=== PATIENT | female | born 1955 | race Caucasian/White ===

== ENCOUNTER 2017-10-19 12:44 | Inpatient (IN) | payer OTHER, MEDICARE ==
[2017-10-19] VITALS (8 sets, daily range): BP systolic 109–128; BP diastolic 56–68; PULSE 80–107; RESP 16–19; TEMP 97.1–99.9; O2SAT 97–100
[~2017-10-19] VITALS: Ht 154.9 cm; Wt 50.8 kg
--- NOTE | 2017-10-19 14:09 | PD ---
HPI Chief Complaint: Abdominal Pain Time Seen by Provider: 14:00 Travel History International Travel<30 days: No Contact w/Intl Traveler<30days: No Traveled to known affect area: No History of Present Illness HPI 62-year-old female with history of COPD oxygen dependent at home, anxiety, hepatitis C, presents emergency department for evaluation of abdominal pain. Pain has been generalized. It has associated nausea that radiates to the back. He has been ongoing for the last 5 days. She feels as though her abdomen is more distended. Patient has history of cholecystectomy. She reports difficulty urinating. Denies any changes in bowel habits. She has not yet vomited. Pain is a constant, 6 out of 10, exacerbates to a 10 out of 10 with any palpation. She denies any fever chills. She feels that she has been more short of breath than usual but attributes this to her abdominal distention. She has no other symptoms to report at this time. PFSH Past Medical History Anxiety: Yes Heart Rhythm Problems: Yes COPD: Yes Diminished Hearing: No GERD: Yes Hepatitis: Yes (C) Respiratory: Yes (COPD) Immunizations Current: Yes Tetanus Vaccination: Unknown Influenza Vaccination: No Social History Alcohol Use: Yes (seldom) Tobacco Use: Yes Substance Use: No Allergies-Medications (Allergen,Severity, Reaction): Coded Allergies: No Known Allergies (Unverified , 10/19/17) Reported Meds & Prescriptions Reported Meds & Active Scripts Active Reported Oxycodone (Oxycodone HCl) 30 Mg Tab 30 Mg PO Q8H PRN Ranitidine (Ranitidine HCl) 150 Mg Tab 150 Mg PO DAILY Omeprazole 40 Mg Cap 40 Mg DAILY Prednisone 10 Mg Tab 10 Mg PO DAILY Montelukast (Montelukast Sodium) 10 Mg Tab 10 Mg PO HS Cardizem CD 24 HR (Diltiazem CD 24 HR) 180 Mg Caper 180 Mg PO DAILY Ventolin Hfa 18 GM Inh (Albuterol Sulfate) 90 Mcg/Act Aer 2 Puff INH Q4H PRN Ipratropium Neb (Ipratropium [place]) 0.5 Mg/2.5 Ml Amp 0.5 Mg NEB Q4HR NEB Albuterol Neb (Albuterol Sulfate) 2.5 Mg/0.5 Ml Neb 2.5 Mg NEB Q4HR NEB PRN Note: The Albuterol Sulfate Inhalation Solution is concentrated and must be diluted. Read complete instructions carefully before using. Alprazolam 1 Mg Tab 1 Mg PO Q8H PRN Alprazolam 0.5 Mg Tab 0.5 Mg PO Q8H PRN Review of Systems Except as stated in HPI: all other systems reviewed are Neg Physical Exam Narrative GENERAL: Chronically ill-appearing female patient, in no acute distress SKIN: Focused skin assessment warm/dry. HEAD: Atraumatic. Normocephalic. EYES: Pupils equal and round. No scleral icterus. No injection or drainage. ENT: No nasal bleeding or discharge. Mucous membranes pink and moist. NECK: Trachea midline. No JVD. CARDIOVASCULAR: Elevated regular rate and rhythm. RESPIRATORY: No accessory muscle use. Diminished, expiratory wheeze to auscultation. Breath sounds equal bilaterally. GASTROINTESTINAL: Abdomen distended, but soft. Generalized tenderness to palpation. Mild guarding with epigastric palpation. MUSCULOSKELETAL: No obvious deformities. No clubbing. No cyanosis. No edema. NEUROLOGICAL: Awake and alert. No obvious cranial nerve deficits. Motor grossly within normal limits. Normal speech. PSYCHIATRIC: Appropriate mood and affect; insight and judgment normal. Data Data Last Documented VS Vital Signs Date Time Temp Pulse Resp B/P (MAP) Pulse Ox O2 Delivery O2 Flow Rate FiO2 10/19/17 17:46 93 16 115/56 (75) 100 Nasal Cannula 2.00 10/19/17 13:20 98.0 Orders Orders Complete Blood Count With Diff (10/19/17 14:07) Comprehensive Metabolic Panel (10/19/17 14:07) Lipase (10/19/17 14:07) Lactic Acid (10/19/17 14:07) Prothrombin Time / Inr (Pt) (10/19/17 14:07) Act Partial Throm Time (Ptt) (10/19/17 14:07) Urinalysis - C+S If Indicated (10/19/17 14:07) Ct Abd/Pel W Iv Contrast(Rout) (10/19/17 14:07) Iv Access Insert/Monitor (10/19/17 14:07) Ecg Monitoring (10/19/17 14:07) Oximetry (10/19/17 14:07) Sodium Chloride 0.9% Flush (Ns Flush) (10/19/17 14:15) Electrocardiogram (10/19/17 14:07) Abdomen, Upright Only (10/19/17 14:07) Ct Brain W/O Iv Contrast(Rout) (10/19/17 ) Ct Lumb Spine W Iv Contrast (10/19/17 ) Iohexol 350 Inj (Omnipaque 350 Inj) (10/19/17 16:25) Urine Culture (10/19/17 16:24) Morphine Inj (Morphine Inj) (10/19/17 17:15) Labs Laboratory Tests Test 10/19/17 00:00 10/19/17 14:25 10/19/17 14:27 10/19/17 16:24 Blood Urea Nitrogen 23 MG/DL Creatinine 1.04 MG/DL Random Glucose 123 MG/DL Total Protein 6.5 GM/DL Albumin 2.8 GM/DL Calcium Level 9.0 MG/DL Alkaline Phosphatase 257 U/L Aspartate Amino Transf (AST/SGOT) 51 U/L Alanine Aminotransferase (ALT/SGPT) 67 U/L Total Bilirubin 0.3 MG/DL Sodium Level 137 MEQ/L Potassium Level 3.5 MEQ/L Chloride Level 96 MEQ/L Carbon Dioxide Level 34.8 MEQ/L Anion Gap 6 MEQ/L Estimat Glomerular Filtration Rate 54 ML/MIN Lipase 55 U/L White Blood Count 17.5 TH/MM3 Red Blood Count 3.86 MIL/MM3 Hemoglobin 11.4 GM/DL Hematocrit 35.7 % Mean Corpuscular Volume 92.6 FL Mean Corpuscular Hemoglobin 29.6 PG Mean Corpuscular Hemoglobin Concent 32.0 % Red Cell Distribution Width 14.3 % Platelet Count 199 TH/MM3 Mean Platelet Volume 9.2 FL Neutrophils (%) (Auto) 89.0 % Lymphocytes (%) (Auto) 2.1 % Monocytes (%) (Auto) 7.8 % Eosinophils (%) (Auto) 0.8 % Basophils (%) (Auto) 0.3 % Neutrophils # (Auto) 15.5 TH/MM3 Lymphocytes # (Auto) 0.4 TH/MM3 Monocytes # (Auto) 1.4 TH/MM3 Eosinophils # (Auto) 0.1 TH/MM3 Basophils # (Auto) 0.0 TH/MM3 CBC Comment DIFF FINAL Differential Comment Prothrombin Time 9.2 SEC Prothromb Time International Ratio 0.9 RATIO Activated Partial Thromboplast Time 24.1 SEC Lactic Acid Level 1.1 mmol/L Urine Color YELLOW Urine Turbidity HAZY Urine pH 6.0 Urine Specific [place] 1.017 Urine Protein NEG mg/dL Urine Glucose (UA) NEG mg/dL Urine Ketones NEG mg/dL Urine Occult Blood MOD Urine Nitrite NEG Urine Bilirubin NEG Urine Leukocyte Esterase SMALL Urine RBC 3 /hpf Urine WBC 26 /hpf Urine Squamous Epithelial Cells 5 /hpf Urine Bacteria OCC /hpf Microscopic Urinalysis Comment CULTURE INDICATED MDM Medical Decision Making Medical Screen Exam Complete: Yes Emergency Medical Condition: Yes Medical Record Reviewed: Yes Differential Diagnosis Gastritis versus hepatitis versus ascites versus pancreatitis versus cholangitis Narrative Course 62-year-old female presents emergency department for evaluation. Patient has meant that is tender to palpate, primarily in the epigastrium. She appears chronically ill. Laboratory Tests Test 10/19/17 00:00 10/19/17 14:25 10/19/17 14:27 10/19/17 16:24 Blood Urea Nitrogen 23 MG/DL Creatinine 1.04 MG/DL Random Glucose 123 MG/DL Total Protein 6.5 GM/DL Albumin 2.8 GM/DL Calcium Level 9.0 MG/DL Alkaline Phosphatase 257 U/L Aspartate Amino Transf (AST/SGOT) 51 U/L Alanine Aminotransferase (ALT/SGPT) 67 U/L Total Bilirubin 0.3 MG/DL Sodium Level 137 MEQ/L Potassium Level 3.5 MEQ/L Chloride Level 96 MEQ/L Carbon Dioxide Level 34.8 MEQ/L Anion Gap 6 MEQ/L Estimat Glomerular Filtration Rate 54 ML/MIN Lipase 55 U/L White Blood Count 17.5 TH/MM3 Red Blood Count 3.86 MIL/MM3 Hemoglobin 11.4 GM/DL Hematocrit 35.7 % Mean Corpuscular Volume 92.6 FL Mean Corpuscular Hemoglobin 29.6 PG Mean Corpuscular Hemoglobin Concent 32.0 % Red Cell Distribution Width 14.3 % Platelet Count 199 TH/MM3 Mean Platelet Volume 9.2 FL Neutrophils (%) (Auto) 89.0 % Lymphocytes (%) (Auto) 2.1 % Monocytes (%) (Auto) 7.8 % Eosinophils (%) (Auto) 0.8 % Basophils (%) (Auto) 0.3 % Neutrophils # (Auto) 15.5 TH/MM3 Lymphocytes # (Auto) 0.4 TH/MM3 Monocytes # (Auto) 1.4 TH/MM3 Eosinophils # (Auto) 0.1 TH/MM3 Basophils # (Auto) 0.0 TH/MM3 CBC Comment DIFF FINAL Differential Comment Prothrombin Time 9.2 SEC Prothromb Time International Ratio 0.9 RATIO Activated Partial Thromboplast Time 24.1 SEC Lactic Acid Level 1.1 mmol/L Urine Color YELLOW Urine Turbidity HAZY Urine pH 6.0 Urine Specific [place] 1.017 Urine Protein NEG mg/dL Urine Glucose (UA) NEG mg/dL Urine Ketones NEG mg/dL Urine Occult Blood MOD Urine Nitrite NEG Urine Bilirubin NEG Urine Leukocyte Esterase SMALL Urine RBC 3 /hpf Urine WBC 26 /hpf Urine Squamous Epithelial Cells 5 /hpf Urine Bacteria OCC /hpf Microscopic Urinalysis Comment CULTURE INDICATED Patient is with leukocytosis of 17.5 and a neutrophilia of 15.5. She does take prednisone every day however this is uncertain if this is due to infectious process. CMP is with slightly elevated BUN of 23, creatinine 1.04. Slight transaminitis. Lactic acid is 1.9. Urinalysis is hazy with moderate occult blood, small leukocyte Estrace, 26 WBCs with occasional bacteria. Culture is indicated. Last Impressions Abdomen/Pelvis CT 10/19/171406 Signed Impressions: CONCLUSION: 1. Dilated intra and extra hepatic biliary ducts with the common bile duct alejandro suring 16 mm in diameter. An obstructing process in the distal common bile duct needs to be excluded. 2. Dilated main pancreatic duct measuring 6 mm. No discrete evidence of pancre atic mass. 3. Status post cholecystectomy. 4. No other significant abnormality noted. Abdomen X-Ray 10/19/171406 Signed Impressions: CONCLUSION: 1. No evidence of significant ileus, mass effect or free air. 2. Right upper quadrant calcifications which may represent nephrolithiasis. Lumbar Spine CT 10/19/17 0000 Signed Impressions: CONCLUSION: 1. Advanced degenerative disc disease at L1-2 and L2-3 as described 2. No evidence of acute disc herniation, significant foraminal encroachment or spinal stenosis. 3. No evidence of enhancing epidural or intradural lesions. 4. No acute bony abnormality. Head CT 10/19/17 0000 Signed Impressions: CONCLUSION: 1. Ventriculomegaly which may represent mild hydrocephalus. 2. No evidence of acute infarct, hemorrhage, mass or edema. I discussed the patient my attending physician who is also assessed the patient. Last Impressions Abdomen/Pelvis CT 10/19/171406 Signed Impressions: CONCLUSION: 1. Dilated intra and extra hepatic biliary ducts with the common bile duct alejandro suring 16 mm in diameter. An obstructing process in the distal common bile duct needs to be excluded. 2. Dilated main pancreatic duct measuring 6 mm. No discrete evidence of pancre atic mass. 3. Status post cholecystectomy. 4. No other significant abnormality noted. Abdomen X-Ray 10/19/17 1407 Signed Impressions: CONCLUSION: 1. No evidence of significant ileus, mass effect or free air. 2. Right upper quadrant calcifications which may represent nephrolithiasis. Lumbar Spine CT 10/19/17 0000 Signed Impressions: CONCLUSION: 1. Advanced degenerative disc disease at L1-2 and L2-3 as described 2. No evidence of acute disc herniation, significant foraminal encroachment or spinal stenosis. 3. No evidence of enhancing epidural or intradural lesions. 4. No acute bony abnormality. Head CT 10/19/17 0000 Signed Impressions: CONCLUSION: 1. Ventriculomegaly which may represent mild hydrocephalus. 2. No evidence of acute infarct, hemorrhage, mass or edema. I discussed the patient with Dr. hayes. Patient will be admitted to medicine. She is given IV Zosyn. A call has been placed to GI and I am waiting on return call for consult. Diagnosis Primary Impression: Abdominal pain Qualified Codes: R10.84 - Generalized abdominal pain Additional Impressions: Cholangitis UTI (urinary tract infection) Qualified Codes: N39.0 - Urinary tract infection, site not specified; R31.9 - Hematuria, unspecified Admitting Information Admitting Physician Requests: Admit Condition: Stable Alycia Weldon Oct 19, 2017 14:09
[2017-10-19] MEDS ORDERED: SODIUM CHLORIDE 0.9% FLUSH 10 ML FLUSH IV FLUSH PRN ×2 (14:15→19:30)
[2017-10-19 14:54] LABS: AUTOMATED NEUTROPHIL # 15.5 TH/MM3 (1.8-7.7); BASOPHIL % 0.3 % (0.0-2.0); EOSINOPHIL # 0.1 TH/MM3 (0-0.4); EOSINOPHIL % 0.8 % (0.0-4.0); HEMATOCRIT 35.7 % (35.0-46.0); HEMOGLOBIN 11.4 GM/DL (11.6-15.3); LYMPH % 2.1 % (9.0-44.0); LYMPHOCYTE # 0.4 TH/MM3 (1.0-4.8); MEAN CELL VOLUME 92.6 FL (80.0-100.0); MEAN CORPUSCULAR HEMOGLOBIN 29.6 PG (27.0-34.0); MEAN PLATELET VOLUME 9.2 FL (7.0-11.0); MONO % 7.8 % (0.0-8.0); MONOCYTE # 1.4 TH/MM3 (0-0.9); PLATELET COUNT 199 TH/MM3 (150-450); RED BLOOD COUNT 3.86 MIL/MM3 (4.00-5.30); RED CELL DISTRIBUTION WIDTH 14.3 % (11.6-17.2); WHITE BLOOD COUNT 17.5 TH/MM3 (4.0-11.0)
--- NOTE | 2017-10-19 14:59 | RADRPT ---
EXAM DATE: 10/19/2017 2:54 PM EDT AGE/SEX: 62 years / Female INDICATIONS: Abdomen pain 5 days. CLINICAL DATA: This is the patient's initial encounter. Patient reports that signs and symptoms have been present for 4 - 6 days and indicates a pain score of 9/10. MEDICAL/SURGICAL HISTORY: None. Cholecystectomy. Appendectomy. COMPARISON: No prior exams available for comparison. FINDINGS: A moderate amount retained stool is present in the colon. There is no evidence of significant ileus. There is no evidence of free air or mass effect. Small calcification is seen in the right upper quadr ant. CONCLUSION: 1. No evidence of significant ileus, mass effect or free air. 2. Right upper quadrant calcifications which may represent nephrolithiasis. Electronically signed by: Wil Mcclure MD 10/19/2017 2:58 PM EDT
[2017-10-19 15:05] LABS: INTERNATIONAL NORMALIZED RATIO 0.9 RATIO; PROTHROMBIN TIME - PATIENT 9.2 SEC (9.8-11.6)
[2017-10-19 15:14] LABS: ALBUMIN 2.8 GM/DL (3.4-5.0); ALT (GPT) 67 U/L (10-53); AST (GOT) 51 U/L (15-37); BICARBONATE 34.8 MEQ/L (21.0-32.0); BLOOD UREA NITROGEN 23 MG/DL (7-18); CHLORIDE 96 MEQ/L (98-107); CREATININE 1.04 MG/DL (0.50-1.00); GLOMERULAR FILTRATION RATE 54 ML/MIN (>89); GLUCOSE,RANDOM 123 MG/DL (74-106); SODIUM (NA) 137 MEQ/L (136-145)
[2017-10-19 15:17] LABS: ALKALINE PHOSPHATASE 257 U/L (45-117); TOTAL BILIRUBIN ADULT 0.3 MG/DL (0.2-1.0); TOTAL PROTEIN 6.5 GM/DL (6.4-8.2)
[2017-10-19] MEDS ORDERED: RANI150T PO (15:19)
[2017-10-19] MEDS ORDERED: IPRA0.02 NEB (15:19)
[2017-10-19] MEDS ORDERED: PRED10 PO (15:19)
[2017-10-19] MEDS ORDERED: ALPR1TAB3 PO (15:19)
[2017-10-19] MEDS ORDERED: MONT10TA4 PO (15:19)
[2017-10-19] MEDS ORDERED: OMEP40CA2 (15:19)
[2017-10-19] MEDS ORDERED: CARD180C5 PO (15:19)
[2017-10-19] MEDS ORDERED: ALBU.5I NEB (15:19)
[2017-10-19] MEDS ORDERED: ALPR0.5T3 PO (15:19)
[2017-10-19] MEDS ORDERED: OXYC30TA PO (15:19)
[2017-10-19] MEDS ORDERED: VENTAER INH (15:19)
[2017-10-19] MEDS ORDERED: IOHEXOL 350 MG/ML 10 ML VIAL (for RAD DIAG) IVCONTRAST ONE (16:25)
--- NOTE | 2017-10-19 16:28 | RADRPT ---
EXAM DATE: 10/19/2017 4:18 PM EDT AGE/SEX: 62 years / Female INDICATIONS: Trauma, fall. CLINICAL DATA: This is the patient's initial encounter. Patient reports that signs and symptoms have been present for 1 day and indicates a pain score of 9/10. MEDICAL/SURGICAL HISTORY: Chronic obstructive pulmonary disease. Gastroesophageal reflux disease. Hepatitis C. None. RADIATION DOSE: 60.11 CTDI (mGy) COMPARISON: No prior exams available for comparison. TECHNIQUE: CT of the head without contrast. Using automated exposure control and adjustment of the mA and/or kV according to patient size, radiation dose was kept as low as reasonably achievable to ob tain optimal diagnostic quality images. FINDINGS: Cerebrum: The ventricles are enlarged for age. There is no significant periventricular hypodensity. Sulcal effacement along the cerebral convexities is noted. No evidence of midline shift, mass lesion, hemorrhage or acute infarction. No extraaxial fluid collections are seen. Posterior Fossa: The cerebellum and brainstem are intact. The 4th ventricle is midline. The cerebe llopontine angle is unremarkable. Extracranial: The visualized portion of the orbits is intact. Skull: The calvaria is intact. No evidence of skull fracture. CONCLUSION: 1. Ventriculomegaly which may represent mild hydrocephalus. 2. No evidence of acute infarct, hemorrhage, mass or edema. Electronically signed by: Wil Mcclure MD 10/19/2017 4:26 PM EDT
--- NOTE | 2017-10-19 16:33 | RADRPT ---
EXAM DATE: 10/19/2017 4:20 PM EDT AGE/SEX: 62 years / Female INDICATIONS: Abdominal pain. CLINICAL DATA: This is the patient's initial encounter. Patient reports that signs and symptoms have been present for 1 day and indicates a pain score of 5/10. MEDICAL/SURGICAL HISTORY: Chronic obstructive pulmonary disease. Gastroesophageal reflux disea se. Hepatitis C. Umbilical hernia repair. ORAL CONTRAST: No oral contrast ingested. RADIATION DOSE: 5.81 CTDI (mGy) COMPARISON: No prior exams available for comparison. TECHNIQUE: Multiple contiguous axial images were obtained through the abdomen and pelvis following b olus infusion of 95 ml Omnipaque 350 (iohexol) nonionic water-soluble contrast as a cumulative dose for multiple exams. No oral contrast ingested. Using automated exposure control and adjustment of t he mA and/or kV according to patient size, the radiation dose was kept as low as reasonably achievabl e to obtain optimal diagnostic quality images. FINDINGS: Lower Lungs: The visualized lower lungs are clear. Liver: The liver has a homogeneous density without space-occupying lesion. Postcholecystectomy clips are noted. There is distention of the biliary tree. Common bile duct measures 1.6 cm in diameter. The intrahepatic biliary radicals are mildly dilated. Spleen: Homogeneous density without enlargement. Pancreas: The main pancreatic duct is dilated. It measures 6 mm in diameter and pancreatic head. The duct is diffusely dilated. There is no evidence of obstructing mass or calculus. Kidneys: Normal in size and shape. No evidence of mass or hydronephrosis. Adrenal Glands: Unremarkable. Aorta: Moderate calcified plaque is present throughout the aorta. Bowel/Mesentery: The bowel loops are grossly unremarkable. The cecum and sigmoid colon have a normal configuration. Abdominal Wall: Intact. Retroperitoneum: No evidence of adenopathy in the retrocrural, para-aortic, or deep pelvic regions. Bladder: Contours are smooth. Reproductive Organs: No abnormal masses or calcifications seen. Inguinal: The inguinal region is unremarkable without evidence of adenopathy. Bony Structures: Unremarkable. CONCLUSION: 1. Dilated intra and extra hepatic biliary ducts with the common bile duct measuring 16 mm in diamet er. An obstructing process in the distal common bile duct needs to be excluded. 2. Dilated main pancreatic duct measuring 6 mm. No discrete evidence of pancreatic mass. 3. Status post cholecystectomy. 4. No other significant abnormality noted. Electronically signed by: Wil Mcclure MD 10/19/2017 4:31 PM EDT
[2017-10-19 16:42] LABS: BACTERIA, URINE OCC /hpf; BILIRUBIN, URINE NEG (NEG); BLOOD, URINE MOD (NEG); GLUCOSE,URINE NEG (NEG); KETONE, URINE NEG (NEG); NITRITE,URINE NEG (NEG); SQUAMOUS EPITHELIAL CELL URINE 5 /hpf (0-5); URINE COLOR YELLOW (YELLW/STRAW); URINE LEUKOCYTE ESTERASE SMALL (NEG)
--- NOTE | 2017-10-19 16:48 | RADRPT ---
EXAM DATE: 10/19/2017 4:24 PM EDT AGE/SEX: 62 years / Female INDICATIONS: Lower back pain for 5 days. CLINICAL DATA: This is the patient's initial encounter. Patient reports that signs and symptoms have been present for 4 - 6 days and indicates a pain score of 4/10. MEDICAL/SURGICAL HISTORY: Chronic obstructive pulmonary disease. Cardiovascular disease. Hepatiti s C. None. RADIATION DOSE: . CTDI (mGy) ; Reconstructed from previous dataset, no dose COMPARISON: No prior exams available for comparison. TECHNIQUE: Contiguous axial images were acquired with a multirow detector CT scanner after intraveno us administration of 93 ml Omnipaque 350 (iohexol) nonionic water-soluble contrast as a single exam dose. Multiplanar reconstructions in the sagittal and coronal plane were also performed. Using autom ated exposure control and adjustment of the mA and/or kV according to patient size, radiation dose wa s kept as low as reasonably achievable to obtain optimal diagnostic quality images. FINDINGS: ALIGNMENT: Slight reversal of normal lordosis is identified in the upper lumbar spine. There is slig ht retrolisthesis of L2 on L3. AP alignment is otherwise well preserved.. FACET AND OSSEOUS STRUCTURES: Vertebral bodies are intact without evidence of compression deformity. Posterior elements are intact. There is no significant facet arthropathy. INTERVERTEBRAL DISC SPACES: Advanced degenerative disc disease is noted at L1-2 and L2-3. There is marked disc space narrowing, m arginal spondylosis and gas cumulation within the disc spaces. L1-2: There is no evidence of epidural disc herniation, foraminal encroachment or spinal stenosis. L2-3: A broad-based disc osteophyte complex is identified. There is anterior epidural effacement with out significant spinal stenosis. Mild foraminal encroachment is noted bilaterally. The L3-4, L4-5 and L5-S1 intervertebral disc are unremarkable. NEUROLOGIC STRUCTURES: The spinal cord and nerve roots appear normal. There is no evidence of claudine stephany. There are no enhancing epidural or intradural soft tissue abnormalities. CONCLUSION: 1. Advanced degenerative disc disease at L1-2 and L2-3 as described 2. No evidence of acute disc herniation, significant foraminal encroachment or spinal stenosis. 3. No evidence of enhancing epidural or intradural lesions. 4. No acute bony abnormality. Electronically signed by: Wil Mcclure MD 10/19/2017 4:46 PM EDT
--- NOTE | 2017-10-19 17:12 | PD ---
Physical Exam Date Seen by Provider: Oct 19, 2017 Narrative This patient is being seen primarily by the nurse practitioner. She presents with a 3 day history of abdominal pain which is getting progressively worse. She later told me that her operations dispatcher down in [facility] has mentioned something about a blockage in her biliary tract before. She states that [facility]. Data Data Last Documented VS Vital Signs Date Time Temp Pulse Resp B/P (MAP) Pulse Ox O2 Delivery O2 Flow Rate FiO2 10/19/17 15:11 80 18 110/61 (77) 98 Room Air 10/19/17 13:20 98.0 Orders Orders Complete Blood Count With Diff (10/19/17 14:07) Comprehensive Metabolic Panel (10/19/17 14:07) Lipase (10/19/17 14:07) Lactic Acid (10/19/17 14:07) Prothrombin Time / Inr (Pt) (10/19/17 14:07) Act Partial Throm Time (Ptt) (10/19/17 14:07) Urinalysis - C+S If Indicated (10/19/17 14:07) Ct Abd/Pel W Iv Contrast(Rout) (10/19/17 14:07) Iv Access Insert/Monitor (10/19/17 14:07) Ecg Monitoring (10/19/17 14:07) Oximetry (10/19/17 14:07) Sodium Chloride 0.9% Flush (Ns Flush) (10/19/17 14:15) Electrocardiogram (10/19/17 14:07) Abdomen, Upright Only (10/19/17 14:07) Ct Brain W/O Iv Contrast(Rout) (10/19/17 ) Ct Lumb Spine W Iv Contrast (10/19/17 ) Iohexol 350 Inj (Omnipaque 350 Inj) (10/19/17 16:25) Urine Culture (10/19/17 16:24) Morphine Inj (Morphine Inj) (10/19/17 17:15) Labs Laboratory Tests Test 10/19/17 00:00 10/19/17 14:25 10/19/17 14:27 10/19/17 16:24 Blood Urea Nitrogen 23 MG/DL Creatinine 1.04 MG/DL Random Glucose 123 MG/DL Total Protein 6.5 GM/DL Albumin 2.8 GM/DL Calcium Level 9.0 MG/DL Alkaline Phosphatase 257 U/L Aspartate Amino Transf (AST/SGOT) 51 U/L Alanine Aminotransferase (ALT/SGPT) 67 U/L Total Bilirubin 0.3 MG/DL Sodium Level 137 MEQ/L Potassium Level 3.5 MEQ/L Chloride Level 96 MEQ/L Carbon Dioxide Level 34.8 MEQ/L Anion Gap 6 MEQ/L Estimat Glomerular Filtration Rate 54 ML/MIN Lipase 55 U/L White Blood Count 17.5 TH/MM3 Red Blood Count 3.86 MIL/MM3 Hemoglobin 11.4 GM/DL Hematocrit 35.7 % Mean Corpuscular Volume 92.6 FL Mean Corpuscular Hemoglobin 29.6 PG Mean Corpuscular Hemoglobin Concent 32.0 % Red Cell Distribution Width 14.3 % Platelet Count 199 TH/MM3 Mean Platelet Volume 9.2 FL Neutrophils (%) (Auto) 89.0 % Lymphocytes (%) (Auto) 2.1 % Monocytes (%) (Auto) 7.8 % Eosinophils (%) (Auto) 0.8 % Basophils (%) (Auto) 0.3 % Neutrophils # (Auto) 15.5 TH/MM3 Lymphocytes # (Auto) 0.4 TH/MM3 Monocytes # (Auto) 1.4 TH/MM3 Eosinophils # (Auto) 0.1 TH/MM3 Basophils # (Auto) 0.0 TH/MM3 CBC Comment DIFF FINAL Differential Comment Prothrombin Time 9.2 SEC Prothromb Time International Ratio 0.9 RATIO Activated Partial Thromboplast Time 24.1 SEC Lactic Acid Level 1.1 mmol/L Urine Color YELLOW Urine Turbidity HAZY Urine pH 6.0 Urine Specific [place] 1.017 Urine Protein NEG mg/dL Urine Glucose (UA) NEG mg/dL Urine Ketones NEG mg/dL Urine Occult Blood MOD Urine Nitrite NEG Urine Bilirubin NEG Urine Leukocyte Esterase SMALL Urine RBC 3 /hpf Urine WBC 26 /hpf Urine Squamous Epithelial Cells 5 /hpf Urine Bacteria OCC /hpf Microscopic Urinalysis Comment CULTURE INDICATED MDM Supervised Visit with MARIJA: Yes Narrative Course I, Dr. Salas, have reviewed the advance practice practitioner's documentation and am in agreement, met with the patient face to face, made the diagnosis, and the medical decision making was done by me. *My assessment and Findings: She is a thin, cachectic woman who appears much older than her stated age of 62. Her mucous membranes are dry. Her abdomen is diffusely tender. CBC Diagram 10/19/17 14:25 BMP Diagram 10/19/17 00:00 Total Protein 6.5, Albumin 2.8 L, Calcium Level 9.0, Alkaline Phosphatase 257 H , Aspartate Amino Transf (AST/SGOT) 51 H, Alanine Aminotransferase (ALT/SGPT) 67 H, Total Bilirubin 0.3 Last Impressions Abdomen/Pelvis CT 10/19/171406 Signed Impressions: CONCLUSION: 1. Dilated intra and extra hepatic biliary ducts with the common bile duct alejandro suring 16 mm in diameter. An obstructing process in the distal common bile duct needs to be excluded. 2. Dilated main pancreatic duct measuring 6 mm. No discrete evidence of pancre atic mass. 3. Status post cholecystectomy. 4. No other significant abnormality noted. Abdomen X-Ray 10/19/171406 Signed Impressions: CONCLUSION: 1. No evidence of significant ileus, mass effect or free air. 2. Right upper quadrant calcifications which may represent nephrolithiasis. Lumbar Spine CT 10/19/17 0000 Signed Impressions: CONCLUSION: 1. Advanced degenerative disc disease at L1-2 and L2-3 as described 2. No evidence of acute disc herniation, significant foraminal encroachment or spinal stenosis. 3. No evidence of enhancing epidural or intradural lesions. 4. No acute bony abnormality. Head CT 10/19/17 0000 Signed Impressions: CONCLUSION: 1. Ventriculomegaly which may represent mild hydrocephalus. 2. No evidence of acute infarct, hemorrhage, mass or edema. This patient will need to be admitted to the hospital. Gastroenterology will be consulted. Please see Alycia Weldon DNP's note for a more detailed H&P, final diagnosis and disposition Rosemary Salas MD Oct 19, 2017 17:12
[2017-10-19] MEDS ORDERED: MORPHINE SULFATE 4 MG/ML INJ IV PUSH ONE (17:15)
[2017-10-19] MEDS ORDERED: NALOXONE HCL 0.4 MG/ML AMP IV PUSH PRN (18:15)
[2017-10-19] MEDS ORDERED: ACETAMINOPHEN 325 MG TAB PO PRN ×2 (18:15→19:30)
[2017-10-19] MEDS ORDERED: PIPERACIL-TAZO 3.375 GM PREMIX 50 ML IV ONE (18:15)
[2017-10-19] MEDS ORDERED: RESP: ALBUTEROL 2.5 MG/IPRATROPIUM 0.5 MG NEB (SCH) NEB ONE (18:45)
[2017-10-19] MEDS ORDERED: ONDANSETRON ODT 4 MG TAB PO PRN (19:30)
--- NOTE | 2017-10-19 20:56 | EKG ---
Date Performed: 10/19/2017 Time Performed: 14:18:22 PTAGE: 62 years EKG: Sinus rhythm POSSIBLE LEFT ATRIAL ENLARGEMENT BORDERLINE ECG NO PREVIOUS TRACING DOCTOR: Javi Ivey Interpretating Date/Time 10/19/2017 20:53:56
[2017-10-19] MEDS: SODIUM CHLORIDE 0.9% FLUSH 10 ML FLUSH IV FLUSH SCH (21:00)
--- NOTE | 2017-10-19 22:59 | HHI.HP ---
[facility] Physician Tika Cuellar MD Admission Diagnosis Abd pain; Possible cholangitis Diagnoses: Chief Complaint: Abdominal pain Travel History International Travel<30 Days: No Contact w/Intl Traveler <30 Da: No Traveled to Known Affected Are: No History of Present Illness 62-year-old female with a history of COPD on home oxygen, A. fib, anxiety, hepatitis C presented to the ED for abdominal pain. Patient states she has been having constant , 10/10,generalized abdominal pain that radiates to her back with associated nausea for the last 5 days. She also reports difficulty with urination as well. She denies any chest pain, shortness of breath, fever or chills. Past Family Social History Past Medical History COPD on home oxygen Hepatitis C Anxiety A. fib Past Surgical History Cholecystectomy Reported Medications Reported Meds & Active Scripts Active Reported Oxycodone (Oxycodone HCl) 30 Mg Tab 30 Mg PO Q8H PRN Ranitidine (Ranitidine HCl) 150 Mg Tab 150 Mg PO DAILY Omeprazole 40 Mg Cap 40 Mg DAILY Prednisone 10 Mg Tab 10 Mg PO DAILY Montelukast (Montelukast Sodium) 10 Mg Tab 10 Mg PO HS Cardizem CD 24 HR (Diltiazem CD 24 HR) 180 Mg Caper 180 Mg PO DAILY Ventolin Hfa 18 GM Inh (Albuterol Sulfate) 90 Mcg/Act Aer 2 Puff INH Q4H PRN Ipratropium Neb (Ipratropium [place]) 0.5 Mg/2.5 Ml Amp 0.5 Mg NEB Q4HR NEB Albuterol Neb (Albuterol Sulfate) 2.5 Mg/0.5 Ml Neb 2.5 Mg NEB Q4HR NEB PRN Note: The Albuterol Sulfate Inhalation Solution is concentrated and must be diluted. Read complete instructions carefully before using. Alprazolam 1 Mg Tab 1 Mg PO Q8H PRN Alprazolam 0.5 Mg Tab 0.5 Mg PO Q8H PRN Allergies: Coded Allergies: No Known Allergies (Unverified , 10/19/17) Active Ordered Medications Current Medications Medications (Trade) Dose Ordered Sig/Emily Route Start Time Stop Time Status Last Admin (NS Flush) 2 ml UNSCH PRN IV FLUSH 10/19/17 14:15 10/19/17 17:45 Sodium Chloride 1,000 ml @ 70 mls/hr [id number] IV 10/19/17 19:30 10/19/17 23:20 (NS Flush) 2 ml UNSCH PRN IV FLUSH 10/19/17 19:30 (NS Flush) 2 ml BID IV FLUSH 10/19/17 21:00 10/19/17 21:00 (Tylenol) 650 mg Q4H PRN PO 10/19/17 18:15 (Zofran Odt) 4 mg Q6H PRN PO 10/19/17 19:30 (Tylenol) 650 mg Q6H PRN PO 10/19/17 19:30 (Narcan Inj) 0.4 mg UNSCH PRN IV PUSH 10/19/17 18:15 (Milk Of Magnnadja Liq) 30 ml Q12H PRN PO 10/19/17 19:30 Piperacillin Sod/ Tazobactam Sod 50 ml @ 100 mls/hr Q8H IV 10/20/17 02:30 Family History Patient denies any family history Social History Patient denies any tobacco, alcohol or illicit drug use Physical Exam Vital Signs Vital Signs Date Time Temp Pulse Resp B/P (MAP) Pulse Ox O2 Delivery O2 Flow Rate FiO2 10/19/17 19:38 97.1 101 19 115/58 (77) 100 10/19/17 19:24 99 Nasal Cannula 3.00 10/19/17 19:00 100 Nasal Cannula 2.00 10/19/17 18:38 103 18 128/64 (85) 100 Nasal Cannula 2.00 10/19/17 17:46 93 16 115/56 (75) 100 Nasal Cannula 2.00 10/19/17 17:38 90 18 112/57 (75) 100 Nasal Cannula 2.00 10/19/17 15:11 80 18 110/61 (77) 98 Room Air 10/19/17 13:20 98.0 85 17 109/62 (78) 97 Physical Exam GENERAL: This is a well-nourished, well-developed patient, who appears in pain SKIN: No rashes, ecchymoses or lesions. Cool and dry. HEAD: Atraumatic. Normocephalic. EYES: Pupils equal round and reactive. Extraocular motions intact. CARDIOVASCULAR: Regular rate and rhythm without murmurs, gallops, or rubs. RESPIRATORY: Expiratory wheezing throughout all lung redman GASTROINTESTINAL: Abdomen soft, diffuse tenderness in all 4 quadrants, mildly distended. MUSCULOSKELETAL: Extremities without clubbing, cyanosis, or edema. NEUROLOGICAL: Awake and alert. Normal speech. Laboratory Laboratory Tests Test 10/19/17 00:00 10/19/17 14:25 10/19/17 14:27 10/19/17 16:24 Blood Urea Nitrogen 23 Creatinine 1.04 Random Glucose 123 Total Protein 6.5 Albumin 2.8 Calcium Level 9.0 Alkaline Phosphatase 257 Aspartate Amino Transf (AST/SGOT) 51 Alanine Aminotransferase (ALT/SGPT) 67 Total Bilirubin 0.3 Sodium Level 137 Potassium Level 3.5 Chloride Level 96 Carbon Dioxide Level 34.8 Anion Gap 6 Estimat Glomerular Filtration Rate 54 Lipase 55 White Blood Count 17.5 Red Blood Count 3.86 Hemoglobin 11.4 Hematocrit 35.7 Mean Corpuscular Volume 92.6 Mean Corpuscular Hemoglobin 29.6 Mean Corpuscular Hemoglobin Concent 32.0 Red Cell Distribution Width 14.3 Platelet Count 199 Mean Platelet Volume 9.2 Neutrophils (%) (Auto) 89.0 Lymphocytes (%) (Auto) 2.1 Monocytes (%) (Auto) 7.8 Eosinophils (%) (Auto) 0.8 Basophils (%) (Auto) 0.3 Neutrophils # (Auto) 15.5 Lymphocytes # (Auto) 0.4 Monocytes # (Auto) 1.4 Eosinophils # (Auto) 0.1 Basophils # (Auto) 0.0 CBC Comment DIFF FINAL Differential Comment Prothrombin Time 9.2 Prothromb Time International Ratio 0.9 Activated Partial Thromboplast Time 24.1 Lactic Acid Level 1.1 Urine Color YELLOW Urine Turbidity HAZY Urine pH 6.0 Urine Specific [place] 1.017 Urine Protein NEG Urine Glucose (UA) NEG Urine Ketones NEG Urine Occult Blood MOD Urine Nitrite NEG Urine Bilirubin NEG Urine Leukocyte Esterase SMALL Urine RBC 3 Urine WBC 26 Urine Squamous Epithelial Cells 5 Urine Bacteria OCC Microscopic Urinalysis Comment CULTURE INDICATED Date/Time Source Procedure Growth Status 10/19/17 16:24 Urine Clean Catch Urine Culture Pending Received Result Diagram: 10/19/17 14210/19/17 0000 Imaging Last Impressions Abdomen/Pelvis CT 10/19/171406 Signed Impressions: CONCLUSION: 1. Dilated intra and extra hepatic biliary ducts with the common bile duct alejandro suring 16 mm in diameter. An obstructing process in the distal common bile duct needs to be excluded. 2. Dilated main pancreatic duct measuring 6 mm. No discrete evidence of pancre atic mass. 3. Status post cholecystectomy. 4. No other significant abnormality noted. Abdomen X-Ray 10/19/171406 Signed Impressions: CONCLUSION: 1. No evidence of significant ileus, mass effect or free air. 2. Right upper quadrant calcifications which may represent nephrolithiasis. Lumbar Spine CT 10/19/17 Signed Impressions: CONCLUSION: 1. Advanced degenerative disc disease at L1-2 and L2-3 as described 2. No evidence of acute disc herniation, significant foraminal encroachment or spinal stenosis. 3. No evidence of enhancing epidural or intradural lesions. 4. No acute bony abnormality. Head CT 10/19/17 Signed Impressions: CONCLUSION: 1. Ventriculomegaly which may represent mild hydrocephalus. 2. No evidence of acute infarct, hemorrhage, mass or edema. Caprini VTE Risk Assessment Caprini VTE Risk Assessment: No/Low Risk (score <= 1) Caprini Risk Assessment Model Point Value = 1 Point Value = 2 Point Value = 3 Point Value = 5 Age 41-60 Minor surgery BMI > 25 kg/m2 Swollen legs Varicose veins or History of unexplained or recurrent spontaneous Oral contraceptives or hormone replacement Sepsis (< 1 month) Serious lung disease, including pneumonia (< 1 month) Abnormal pulmonary function Acute myocardial infarction Congestive heart failure (< 1 month) History of inflammatory bowel disease Medical patient at bed rest Age 61-74 Arthroscopic surgery Major open surgery (> 45 min) Laparoscopic surgery (> 45 min) Malignancy Confined to bed (> 72 hours) Immobilizing plaster cast Central venous access Age >= 75 History of VTE Family history of VTE Factor V Leiden Prothrombin [id number] Lupus anticoagulant Anticardiolipin antibodies Elevated serum homocysteine Heparin-induced thrombocytopenia Other congenital or acquired thrombophilia Stroke (< 1 month) Elective arthroplasty Hip, pelvis, or leg fracture Acute spinal cord injury (< 1 month) Prophylaxis Regimen Total Risk Factor Score Risk Level Prophylaxis Regimen 0-1 Low Early ambulation 2 Moderate Order ONE of the following: *Sequential Compression Device (SCD) *Heparin 5000 units SQ BID 3-4 Higher Order ONE of the following medications: *Heparin 5000 units SQ TID *Enoxaparin/Lovenox 40 mg SQ daily (WT < 150 kg, CrCl > 30 mL/min) *Enoxaparin/Lovenox 30 mg SQ daily (WT < 150 kg, CrCl > 10-29 mL/min) *Enoxaparin/Lovenox 30 mg SQ BID (WT < 150 kg, CrCl > 30 mL/min) AND/OR *Sequential Compression Device (SCD) 5 or more Highest Order ONE of the following medications: *Heparin 5000 units SQ TID (Preferred with Epidurals) *Enoxaparin/Lovenox 40 mg SQ daily (WT < 150 kg, CrCl > 30 mL/min) *Enoxaparin/Lovenox 30 mg SQ daily (WT < 150 kg, CrCl > 10-29 mL/min) *Enoxaparin/Lovenox 30 mg SQ BID (WT < 150 kg, CrCl > 30 mL/min) AND *Sequential Compression Device (SCD) Assessment and Plan Assessment and Plan 62-year-old female with a history of COPD on home oxygen, A. fib, anxiety, hepatitis C presented to the ED for abdominal pain. Abdominal pain, possible cholangitis Abdomen/pelvis CT reviewed and shows a dilated intra-and extrahepatic biliary ducts with the common bile duct measuring 16 mm in diameter, dilated main pancreatic duct measuring 6 mm. -Consult GI for recommendations -Pain management with IV morphine -IV antibiotics Zosyn -Antiemetics as needed COPD, chronic, not in exacerbation -Home meds reordered -Nebulizers as scheduled and as needed A. fib, chronic -Resume home medications Cardizem, monitor telemetry DVT prophylaxis: SCDs Discussed Condition With Patient and RN Physician Certification 2 Midnight Certification Type: Admission for Inpatient Services Order for Inpatient Services The services are ordered in accordance with Medicare regulations or non- Medicare payer requirements, as applicable. In the case of services not specified as inpatient-only, they are appropriately provided as inpatient services in accordance with the 2-midnight benchmark. Estimated LOS (days): 2 days is the estimated time the patient will need to remain in the hospital, assuming treatment plan goals are met and no additional complications. Post-Hospital Plan: Home Em Johnson Oct 19, 2017 22:59
[2017-10-19] MEDS: SODIUM CHLOR 0.9% 1000 ML INJ 1,000 ML IV SCH (23:20)
[2017-10-20] VITALS (7 sets, daily range): BP systolic 123–146; BP diastolic 58–67; PULSE 91–98; RESP 16–19; TEMP 97.3–98.5; O2SAT 97–100
[2017-10-20] MEDS ORDERED: RESP: ALBUTEROL CONC 2.5 MG/0.5 ML NEB NEB PRN
[2017-10-20] MEDS: MORPHINE SULFATE 4 MG/ML INJ IV PRN ×3 (00:55→16:53)
[2017-10-20] MEDS ORDERED: RESP: ALBUTEROL 2.5 MG/IPRATROPIUM 0.5 MG NEB (SCH) NEB ONE (01:45)
[2017-10-20] MEDS: PIPERACIL-TAZO 3.375 GM PREMIX 50 ML IV SCH ×3 (03:36→17:54)
[2017-10-20 07:14] LABS: AUTOMATED NEUTROPHIL # 12.5 TH/MM3 (1.8-7.7); BASOPHIL % 0.3 % (0.0-2.0); EOSINOPHIL # 0.1 TH/MM3 (0-0.4); EOSINOPHIL % 0.6 % (0.0-4.0); HEMOGLOBIN 12.4 GM/DL (11.6-15.3); LYMPH % 2.7 % (9.0-44.0); LYMPHOCYTE # 0.4 TH/MM3 (1.0-4.8); MEAN CELL VOLUME 93.3 FL (80.0-100.0); MEAN CORPUSCULAR HEMOGLOBIN 30.5 PG (27.0-34.0); MEAN CORPUSCULAR HGB CONC 32.7 % (32.0-36.0); MEAN PLATELET VOLUME 9.3 FL (7.0-11.0); MONO % 8.2 % (0.0-8.0); MONOCYTE # 1.2 TH/MM3 (0-0.9); NEUT % 88.2 % (16.0-70.0); PLATELET COUNT 164 TH/MM3 (150-450); RED BLOOD COUNT 4.07 MIL/MM3 (4.00-5.30); RED CELL DISTRIBUTION WIDTH 14.1 % (11.6-17.2); WHITE BLOOD COUNT 14.2 TH/MM3 (4.0-11.0)
[2017-10-20 07:46] LABS: ALBUMIN 2.5 GM/DL (3.4-5.0); ALT (GPT) 55 U/L (10-53); AST (GOT) 45 U/L (15-37); BICARBONATE 31.6 MEQ/L (21.0-32.0); BLOOD UREA NITROGEN 19 MG/DL (7-18); CALCIUM 8.8 MG/DL (8.5-10.1); CHLORIDE 98 MEQ/L (98-107); CREATININE 0.67 MG/DL (0.50-1.00); GLOMERULAR FILTRATION RATE 89 ML/MIN (>89); GLUCOSE,RANDOM 64 MG/DL (74-106); SODIUM (NA) 143 MEQ/L (136-145); TOTAL BILIRUBIN ADULT 0.6 MG/DL (0.2-1.0); TOTAL PROTEIN 6.1 GM/DL (6.4-8.2)
[2017-10-20 07:47] LABS: ALKALINE PHOSPHATASE 291 U/L (45-117)
[2017-10-20] MEDS: RESP: ALBUTEROL 2.5 MG/IPRATROPIUM 0.5 MG NEB (SCH) NEB ×4 (08:00→20:57)
[2017-10-20] MEDS: SODIUM CHLOR 0.9% 1000 ML INJ 1,000 ML IV SCH (08:29)
[2017-10-20] MEDS: SODIUM CHLORIDE 0.9% FLUSH 10 ML FLUSH IV FLUSH SCH ×2 (08:29→21:16)
[2017-10-20] MEDS: FAMOTIDINE 20 MG TAB PO SCH (08:30)
[2017-10-20] MEDS: DILTIAZEM-CD 180 MG CAP ER PO SCH (08:50)
[2017-10-20] MEDS: PANTOPRAZOLE SOD 40 MG DELAYED RELEASE TAB PO SCH (08:50)
[2017-10-20] MEDS: predniSONE 10 MG TAB PO SCH (08:50)
[2017-10-20] MEDS: ALPRAZolam 0.5 MG TAB PO PRN (09:20)
--- NOTE | 2017-10-20 09:45 | PD.CONS ---
HPI History of Present Illness This is a 62 year old female who was admitted to the hospital on 10/19/2017. Symptoms according to the record included uncontrolled abdominal pain radiating into her back and nausea 5 days. Patient at that time graded pain 10 out of 10 and currently is still having uncontrolled pain 10 out of 10. Patient states generalized upper abdominal pain has worsened over the past 24 hours and is sharp in nature patient is pale, hemoglobin 12.4, and has minimal communication at this time secondary to her pain. Some of the history is being obtained from the record. Currently patient has mild cough and is guarding her abdomen. Patient does not know if there is any family history of colon cancer secondary to her being adopted. According to the record she is denied any fever and chills. Currently patient has no diarrhea and no constipation. Abdomen pelvis CT scan performed on 10/19/2017 shows common bile duct dilation, measuring 16 mm in diameter. An obstructing process in the distal common bile duct needs to be excluded. Dilated main pancreatic duct measuring 6 mm but no evidence of pancreatic mass. Status post cholecystectomy. (Fara Posadas) PFSH Past Medical History COPD on home oxygen Hepatitis C Anxiety A. fib Past Surgical History Cholecystectomy (Fara Posadas) Coded Allergies: No Known Allergies (Unverified , 10/19/17) Medications Administered Medications Medications (Trade) Dose Ordered Sig/Emily Route PRN Reason Start Time Stop Time Status Last Admin Dose Admin Sodium Chloride 1,000 ml @ 70 mls/hr [id number] IV 10/19/17 19:30 10/19/17 23:20 Sodium Chloride (NS Flush) 2 ml BID IV FLUSH 10/19/17 21:00 10/19/17 21:00 Acetaminophen (Tylenol) 650 mg Q6H PRN PO PAIN SCALE 1 TO 2 10/19/17 19:30 10/20/17 00:51 Piperacillin Sod/ Tazobactam Sod 50 ml @ 100 mls/hr Q8H IV 10/20/17 02:30 10/20/17 03:36 Alprazolam (Xanax) 0.5 mg Q8H PRN PO ANXIETY 10/20/17 00:00 10/20/17 09:20 Diltiazem HCl (Cardizem Cd) 180 mg DAILY PO 6/15/18 09:00 10/20/17 08:50 Prednisone (Deltasone) 10 mg DAILY PO 10/20/17 09:00 10/20/17 08:50 Pantoprazole Sodium (Protonix) 40 mg DAILY PO 10/20/17 09:00 10/20/17 08:50 Morphine Sulfate (Morphine Inj) 2 mg Q3H PRN IV pain>5 10/20/17 00:15 10/20/17 03:44 Family History Patient denies any family history Adopted Social History Patient denies any tobacco, alcohol or illicit drug use (Fara Posadas) Review of Systems Gastrointestinal: COMPLAINS OF: Abdominal pain, Nausea (Fara Posadas) GI Exam Vitals I&O Vital Signs Date Time Temp Pulse Resp B/P (MAP) Pulse Ox O2 Delivery O2 Flow Rate FiO2 10/20/17 08:00 98.5 98 16 124/63 (83) 98 10/20/17 03:20 98.0 94 18 123/58 (79) 97 10/19/17 22:58 99.9 107 19 128/68 (88) 98 10/19/17 19:38 97.1 101 19 115/58 (77) 100 10/19/17 19:24 99 Nasal Cannula 3.00 10/19/17 19:00 100 Nasal Cannula 2.00 10/19/17 18:38 103 18 128/64 (85) 100 Nasal Cannula 2.00 10/19/17 17:46 93 16 115/56 (75) 100 Nasal Cannula 2.00 10/19/17 17:38 90 18 112/57 (75) 100 Nasal Cannula 2.00 10/19/17 15:11 80 18 110/61 (77) 98 Room Air 10/19/17 13:20 98.0 85 17 109/62 (78) 97 I/O 10/19/17 10/19/17 10/19/17 10/20/17 10/20/17 10/20/17 07:00 15:00 23:00 07:00 15:00 23:00 Intake Total 0 ml Output Total 550 ml Balance -550 ml Intake Oral 0 ml Output Urine Total 550 ml # Bowel Movements 0 Imaging Last Impressions Abdomen/Pelvis CT 10/19/17 8347 Signed Impressions: CONCLUSION: 1. Dilated intra and extra hepatic biliary ducts with the common bile duct alejandro suring 16 mm in diameter. An obstructing process in the distal common bile duct needs to be excluded. 2. Dilated main pancreatic duct measuring 6 mm. No discrete evidence of pancre atic mass. 3. Status post cholecystectomy. 4. No other significant abnormality noted. Abdomen X-Ray 10/19/17 1407 Signed Impressions: CONCLUSION: 1. No evidence of significant ileus, mass effect or free air. 2. Right upper quadrant calcifications which may represent nephrolithiasis. Lumbar Spine CT 10/19/17 0000 Signed Impressions: CONCLUSION: 1. Advanced degenerative disc disease at L1-2 and L2-3 as described 2. No evidence of acute disc herniation, significant foraminal encroachment or spinal stenosis. 3. No evidence of enhancing epidural or intradural lesions. 4. No acute bony abnormality. Head CT 10/19/17 0000 Signed Impressions: CONCLUSION: 1. Ventriculomegaly which may represent mild hydrocephalus. 2. No evidence of acute infarct, hemorrhage, mass or edema. Laboratory Test 10/19/17 14:25 10/19/17 14:27 10/19/17 16:24 10/20/17 06:32 White Blood Count 17.5 TH/MM3 14.2 TH/MM3 Red Blood Count 3.86 MIL/MM3 4.07 MIL/MM3 Hemoglobin 11.4 GM/DL 12.4 GM/DL Hematocrit 35.7 % 38.0 % Mean Corpuscular Volume 92.6 FL 93.3 FL Mean Corpuscular Hemoglobin 29.6 PG 30.5 PG Mean Corpuscular Hemoglobin Concent 32.0 % 32.7 % Red Cell Distribution Width 14.3 % 14.1 % Platelet Count 199 TH/MM3 164 TH/MM3 Mean Platelet Volume 9.2 FL 9.3 FL Neutrophils (%) (Auto) 89.0 % 88.2 % Lymphocytes (%) (Auto) 2.1 % 2.7 % Monocytes (%) (Auto) 7.8 % 8.2 % Eosinophils (%) (Auto) 0.8 % 0.6 % Basophils (%) (Auto) 0.3 % 0.3 % Neutrophils # (Auto) 15.5 TH/MM3 12.5 TH/MM3 Lymphocytes # (Auto) 0.4 TH/MM3 0.4 TH/MM3 Monocytes # (Auto) 1.4 TH/MM3 1.2 TH/MM3 Eosinophils # (Auto) 0.1 TH/MM3 0.1 TH/MM3 Basophils # (Auto) 0.0 TH/MM3 0.0 TH/MM3 CBC Comment DIFF FINAL DIFF FINAL Differential Comment Prothrombin Time 9.2 SEC Prothromb Time International Ratio 0.9 RATIO Activated Partial Thromboplast Time 24.1 SEC Lactic Acid Level 1.1 mmol/L Urine Color YELLOW Urine Turbidity HAZY Urine pH 6.0 Urine Specific [place] 1.017 Urine Protein NEG mg/dL Urine Glucose (UA) NEG mg/dL Urine Ketones NEG mg/dL Urine Occult Blood MOD Urine Nitrite NEG Urine Bilirubin NEG Urine Leukocyte Esterase SMALL Urine RBC 3 /hpf Urine WBC 26 /hpf Urine Squamous Epithelial Cells 5 /hpf Urine Bacteria OCC /hpf Microscopic Urinalysis Comment CULTURE INDICATED Blood Urea Nitrogen 19 MG/DL Creatinine 0.67 MG/DL Random Glucose 64 MG/DL Total Protein 6.1 GM/DL Albumin 2.5 GM/DL Calcium Level 8.8 MG/DL Alkaline Phosphatase 291 U/L Aspartate Amino Transf (AST/SGOT) 45 U/L Alanine Aminotransferase (ALT/SGPT) 55 U/L Total Bilirubin 0.6 MG/DL Sodium Level 143 MEQ/L Potassium Level 3.7 MEQ/L Chloride Level 98 MEQ/L Carbon Dioxide Level 31.6 MEQ/L Anion Gap 13 MEQ/L Estimat Glomerular Filtration Rate 89 ML/MIN Date/Time Source Procedure Growth Status 10/19/17 16:24 Urine Clean Catch Urine Culture Pending Received Physical Examination HEENT: Pale, normocephalic; atraumatic; no jaundice. NECK: Neck is supple, no JVD, no lymphadenopathy. CHEST: Low volumes generalized diminished breath sounds CARDIAC: Regular rate and rhythm ABDOMEN: Round, taut, mild distention, upper mid generalized abdominal pain with guarding, no hepatosplenomegaly; bowel sounds are present in all four quadrants. EXTREMITIES: No clubbing, cyanosis, or edema. SKIN: Pale, no rash B[employer]ING [employer] OPERATOR: Minimal conversation, poor historian for now (Fara Posadas) Assessment and Plan Assessment: (1) Abdominal pain ICD Codes: R10.9 - Unspecified abdominal pain Status: Acute (2) Cholangitis ICD Codes: K83.0 - Cholangitis Status: Acute Plan 62-year-old female coming to the hospital on 10/19/2017 with uncontrolled generalized and mid abdominal pain on the pain scale 10 out of 10 on with some associated nausea for 5 days. She notes the pain is sharp and uncontrolled and is guarding her abdomen. She is pale hemoglobin 12.4. She has minimal conversation currently secondary to her uncontrolled pain and most of her information is being gathered from the record. Patient is adopted so she does not know her family history. Could not elaborate on last EGD or colonoscopy. CT scan done on 10/19/2017 shows dilated intra-and extra hepatic biliary ducts with common bile duct measuring 6 mm. Obstructing process in the distal common bile duct. Dilated main pancreatic duct measuring 6 mm no evidence of pancreatic mass. Patient is status post cholecystectomy. Plan N.p.o. Consent for ERCP placed on surgery schedule today. Explained to patient she would be having procedure today to help her feel better. IV hydration Anti-medics Protonix Further recommendations to follow Patient was seen per myself and Dr. Randall,, this note was written on his behalf (Fara Posadas) Physician Comments Seen and examined, plan as above, likely ampullary lesion. ERCP today, further recommendations to follow. Thank you for the consult. (Debbie Randall MD) Problem Qualifiers (1) Abdominal pain: Qualified Codes: R10.84 - Generalized abdominal pain Fara Posadas Oct 20, 2017 09:45 Debbie Randall MD Oct 20, 2017 09:56
[2017-10-20] MEDS ORDERED: IOHEXOL 350 MG/ML 50 ML BTL (for RAD DIAG) OTHER ONE (11:25)
[2017-10-20] MEDS ORDERED: LIDOCAINE HCL 1% PF 5 ML SYRINGE OTHER ONE (12:00)
[2017-10-20] MEDS ORDERED: PROPOFOL 200 MG/20 ML AMP IV ONE (12:00)
[2017-10-20] MEDS ORDERED: DO NOT ADM ANY ANTICOAGULANT DRUGS PRN (12:37)
--- NOTE | 2017-10-20 12:39 | GIPROC ---
[facility] [address] [facility]. [facility], [address] ERCP PROCEDURE REPORT EXAM DATE: 10/20/2017 PATIENT NAME: Shanda Decker MR #: [id number] BIRTHDATE: 1955 ATTENDING: Debbie Randall MD ORDER #: [id number] BRIM RAISER: Sabrina Cortez and Anabela Couch STATUS: inpatient INDICATIONS: The patient is a 62 yr old female here for an ERCP due to suspected ascending cholangitis PROCEDURE PERFORMED: ERCP with sphincterotomy/papillotomy MEDICATIONS: None and Per Anesthesia. CONSENT: The patient understands the risks and benefits of the procedure and understands that these risks include, but are not limited to: sedation, allergic reaction, infection, perforation and/or bleeding. Alternative means of evaluation and treatment include, among others: physical exam, x-rays, and/or surgical intervention. The patient elects to proceed with this endoscopic procedure. medical equipment was checked for proper function. Hand hygiene and appropriate measures for infection prevention was taken. After the risks, benefits and alternatives of the procedure were thoroughly explained, Informed was verified, confirmed and timeout was successfully executed by the treatment team. With the patient in left semi-prone position, medications were administered intravenously.The Pentax [id number] was passed from the mouth into the esophagus and further advanced from the esophagus into the stomach. From stomach scope was directed to the second portion of the duodenum. Major papilla was aligned with the duodenoscope. The scope position was confirmed fluoroscopically. Rest of the findings/therapeutics are given below. The scope was then completely withdrawn from the patient and the procedure completed. The pulse, BP, and O2 saturation were monitored and documented by the physician and the nursing staff throughout the entire procedure. The patient was cared for as planned according to standard protocol. The patient was then discharged to recovery in stable condition and with appropriate post procedure care. The ampulla was located the second portion of the duodenum. Bulging with impacted stone ( lady sign) There was a dilation of the CBD. The biliary tree appeared normal with no evidence of stricture or dilation. ADVERSE EVENT: There were no complications. IMPRESSIONS: Impacted stone at the ampulla level, Needle knife sphincterotomy follow by extension by regular sphinctertome. The biliary tree appeared dilated with multiple small debris that were removed by balloon Dilated and tortous pancreatic duct RECOMMENDATIONS: 1. Antibiotics 2. Liver enzymes daily 3. Pain control 4. IV Fluid and Clear liquid diet. REPEAT EXAM: As needed Debbie Randall MD eSigned: Debbie Randall MD 10/20/2017 12:38 PM cc: PATIENT NAME: BrianneShanda MR#: [id number]
[2017-10-20] MEDS ORDERED: PROPOFOL 200 MG/20 ML AMP ONE (12:42)
--- NOTE | 2017-10-20 13:55 | RADRPT ---
EXAM DATE: 10/20/2017 1:34 PM EDT AGE/SEX: 62 years / Female INDICATIONS: Cholangitis. CLINICAL DATA: This is the patient's initial encounter. Patient reports that signs and symptoms have been present for 1 day and indicates a pain score of Nonresponsive. MEDICAL/SURGICAL HISTORY: Chronic obstructive pulmonary disease. Hepatitis C. Gastroesophagea l reflux disease. Smoker. None. COMPARISON: No prior exams available for comparison. FINDINGS: An ERCP was performed by the ordering physician. The images demonstrate prominent common duct with a pparent filling defect evident on the 2 films submitted. Intrahepatic ducts are not visualized. CONCLUSION: Findings as above. Electronically signed by: Greg Mathew MD 10/20/2017 1:54 PM EDT
--- NOTE | 2017-10-20 16:40 | RADRPT ---
EXAM DATE: 10/20/2017 4:36 PM EDT AGE/SEX: 62 years / Female INDICATIONS: Abdominal pain. CLINICAL DATA: This is the patient's initial encounter. Patient reports that signs and symptoms have been present for 3 days and indicates a pain score of 5/10. MEDICAL/SURGICAL HISTORY: Hepatitis C. Chronic obstructive pulmonary disease. Cholecystectomy. Appendectomy. COMPARISON: No prior exams available for comparison. TECHNIQUE: Multiplanar, multisequence images of the abdomen were obtained without contrast including dedicated cholangiographic images. FINDINGS: There is mild prominence of the common duct without filling defects to suggest stone. Finding on ERCP may have been an air bubble There is mild prominence to the pancreatic duct. There is minimal side branch ectasia can be seen wit h early pancreatitis. Trace ascites is evident The liver is free of focal defects Right and left kidneys are unremarkable. CONCLUSION: 1. There is no evidence for for retained common duct stones 2. Trace ascites Electronically signed by: Greg Mathew MD 10/20/2017 4:39 PM EDT
--- NOTE | 2017-10-20 18:24 | HHI.PR ---
Subjective Remarks Follow-up cholangitis/abdominal pain October 20, 2017-patient seen and examined; patient still complaining of abdominal pain along with nausea however denies any emesis Objective Vitals Vital Signs Date Time Temp Pulse Resp B/P (MAP) Pulse Ox O2 Delivery O2 Flow Rate FiO2 10/20/17 16:58 18 10/20/17 16:50 98 10/20/17 16:46 97.3 91 16 129/66 (87) 100 10/20/17 13:00 84 16 141/67 (91) 100 Nasal Cannula 2 10/20/17 12:45 84 16 133/64 (87) 100 Nasal Cannula 2 10/20/17 12:37 98.1 86 16 133/63 (86) 100 Nasal Cannula 2 10/20/17 08:00 98.5 98 16 124/63 (83) 98 10/20/17 03:20 98.0 94 18 123/58 (79) 97 10/19/17 22:58 99.9 107 19 128/68 (88) 98 10/19/17 19:38 97.1 101 19 115/58 (77) 100 10/19/17 19:24 99 Nasal Cannula 3.00 10/19/17 19:00 100 Nasal Cannula 2.00 10/19/17 18:38 103 18 128/64 (85) 100 Nasal Cannula 2.00 I/O 10/19/17 10/19/17 10/19/17 10/20/17 10/20/17 10/20/17 07:00 15:00 23:00 07:00 15:00 23:00 Intake Total 0 ml 610 ml 120 ml Output Total 550 ml Balance -550 ml 610 ml 120 ml Intake Oral 0 ml 120 ml IV Total 10 ml Other 600 ml Output Urine Total 550 ml # Voids 5 # Bowel Movements 0 Result Diagram: 10/20/17 0632 10/20/17 0632 Imaging Last Impressions Cholangiopancreatography MRI 10/20/17 0600 Signed Impressions: CONCLUSION: 1. There is no evidence for for retained common duct stones 2. Trace ascites GI Procedure 10/20/17 0000 Signed Impressions: CONCLUSION: Findings as above. Abdomen/Pelvis CT 10/19/17 1407 Signed Impressions: CONCLUSION: 1. Dilated intra and extra hepatic biliary ducts with the common bile duct alejandro suring 16 mm in diameter. An obstructing process in the distal common bile duct needs to be excluded. 2. Dilated main pancreatic duct measuring 6 mm. No discrete evidence of pancre atic mass. 3. Status post cholecystectomy. 4. No other significant abnormality noted. Abdomen X-Ray 10/19/17 1407 Signed Impressions: CONCLUSION: 1. No evidence of significant ileus, mass effect or free air. 2. Right upper quadrant calcifications which may represent nephrolithiasis. Lumbar Spine CT 10/19/17 0000 Signed Impressions: CONCLUSION: 1. Advanced degenerative disc disease at L1-2 and L2-3 as described 2. No evidence of acute disc herniation, significant foraminal encroachment or spinal stenosis. 3. No evidence of enhancing epidural or intradural lesions. 4. No acute bony abnormality. Head CT 10/19/17 0000 Signed Impressions: CONCLUSION: 1. Ventriculomegaly which may represent mild hydrocephalus. 2. No evidence of acute infarct, hemorrhage, mass or edema. Objective Remarks GENERAL: NAD SKIN: Warm and dry. HEAD: Normocephalic. EYES: No scleral icterus. No injection or drainage. NECK: Supple, trachea midline. No JVD or lymphadenopathy. CARDIOVASCULAR: Regular rate and rhythm without murmurs, gallops, or rubs. RESPIRATORY: Breath sounds equal bilaterally. No accessory muscle use. GASTROINTESTINAL: Abdomen soft, +tender, nondistended. MUSCULOSKELETAL: No cyanosis, or edema. BACK: Nontender without obvious deformity. No CVA tenderness. Procedures ERCP with sphincterotomy/papillotomy October 20, 2017 A/P Problem List: (1) Abdominal pain ICD Code: R10.9 - Unspecified abdominal pain Status: Acute (2) Cholangitis ICD Code: K83.0 - Cholangitis Status: Acute Assessment and Plan 62-year-old female with Abdominal pain, possible cholangitis Abdomen/pelvis CT reviewed and shows a dilated intra-and extrahepatic biliary ducts with the common bile duct measuring 16 mm in diameter, dilated main pancreatic duct measuring 6 mm. -Appreciate input from GI -s/p ERCP with sphincterotomy/papillotomy October 21, 2027 -Pain management with IV morphine -IV antibiotics Zosyn -Antiemetics as needed COPD, chronic, not in exacerbation -Continue Home meds -Nebulizers as scheduled and as needed A. fib, chronic -Continue home medications Cardizem, monitor telemetry DVT prophylaxis: SCDs Problem Qualifiers (1) Abdominal pain: Qualified Codes: R10.84 - Generalized abdominal pain Paul Hugo MD Oct 20, 2017 18:24
[2017-10-20] MEDS: MONTELUKAST SODIUM 10 MG TAB PO SCH (21:16)
[2017-10-21] VITALS (8 sets, daily range): BP systolic 115–158; BP diastolic 61–80; PULSE 80–102; RESP 18–19; TEMP 97.7–98.2; O2SAT 98–100
[2017-10-21] MEDS: SODIUM CHLOR 0.9% 1000 ML INJ 1,000 ML IV SCH ×2 (01:19→14:24)
[2017-10-21] MEDS: PIPERACIL-TAZO 3.375 GM PREMIX 50 ML IV SCH ×3 (03:05→18:36)
[2017-10-21] MEDS: MORPHINE SULFATE 4 MG/ML INJ IV PRN ×3 (03:05→13:39)
[2017-10-21 08:15] LABS: AUTOMATED NEUTROPHIL # 14.7 TH/MM3 (1.8-7.7); BASOPHIL % 0.2 % (0.0-2.0); EOSINOPHIL % 0.3 % (0.0-4.0); HEMATOCRIT 36.8 % (35.0-46.0); HEMOGLOBIN 12.1 GM/DL (11.6-15.3); LYMPH % 2.8 % (9.0-44.0); LYMPHOCYTE # 0.5 TH/MM3 (1.0-4.8); MEAN CORPUSCULAR HEMOGLOBIN 30.3 PG (27.0-34.0); MEAN CORPUSCULAR HGB CONC 32.9 % (32.0-36.0); MEAN PLATELET VOLUME 9.3 FL (7.0-11.0); MONO % 7.2 % (0.0-8.0); MONOCYTE # 1.2 TH/MM3 (0-0.9); NEUT % 89.5 % (16.0-70.0); PLATELET COUNT 203 TH/MM3 (150-450); RED CELL DISTRIBUTION WIDTH 13.7 % (11.6-17.2); WHITE BLOOD COUNT 16.4 TH/MM3 (4.0-11.0)
[2017-10-21 08:51] LABS: ALBUMIN 2.3 GM/DL (3.4-5.0); AST (GOT) 28 U/L (15-37); BICARBONATE 29.8 MEQ/L (21.0-32.0); BLOOD UREA NITROGEN 18 MG/DL (7-18); CALCIUM 8.8 MG/DL (8.5-10.1); CHLORIDE 98 MEQ/L (98-107); GLOMERULAR FILTRATION RATE 162 ML/MIN (>89); GLUCOSE,RANDOM 99 MG/DL (74-106); SODIUM (NA) 139 MEQ/L (136-145)
[2017-10-21 08:52] LABS: ALT (GPT) 43 U/L (10-53)
[2017-10-21 08:54] LABS: ALKALINE PHOSPHATASE 262 U/L (45-117); TOTAL BILIRUBIN ADULT 0.4 MG/DL (0.2-1.0); TOTAL PROTEIN 6.1 GM/DL (6.4-8.2)
[2017-10-21] MEDS: RESP: ALBUTEROL 2.5 MG/IPRATROPIUM 0.5 MG NEB (SCH) NEB ×4 (09:09→21:08)
[2017-10-21] MEDS: DILTIAZEM-CD 180 MG CAP ER PO SCH (09:16)
[2017-10-21] MEDS: PANTOPRAZOLE SOD 40 MG DELAYED RELEASE TAB PO SCH (09:16)
[2017-10-21] MEDS: predniSONE 10 MG TAB PO SCH (09:16)
[2017-10-21] MEDS: FAMOTIDINE 20 MG TAB PO SCH (09:16)
[2017-10-21] MEDS: SODIUM CHLORIDE 0.9% FLUSH 10 ML FLUSH IV FLUSH SCH ×2 (09:16→20:06)
--- NOTE | 2017-10-21 13:50 | HHI.PR ---
Subjective Remarks Pt seen around lunch time. states that she doesn't feel much improved. continues to have abdominal pain. Per RN pt has a poor appetite. Pt thinks she may have vomited this morning. Objective Vitals Vital Signs Date Time Temp Pulse Resp B/P (MAP) Pulse Ox O2 Delivery O2 Flow Rate FiO2 10/21/17 12:00 97.8 92 19 152/74 (100) 100 10/21/17 09:27 18 10/21/17 09:10 99 Nasal Cannula 4.00 10/21/17 08:00 98.0 92 18 137/79 (98) 99 10/21/17 03:45 98.2 102 19 158/74 (102) 100 10/20/17 23:49 97.4 97 19 140/64 (89) 100 10/20/17 20:57 97 Nasal Cannula 3.00 10/20/17 19:02 98.5 95 18 146/67 (93) 97 10/20/17 16:50 98 10/20/17 16:46 97.3 91 16 129/66 (87) 100 I/O 10/20/17 10/20/17 10/20/17 10/21/17 10/21/17 10/21/17 07:00 15:00 23:00 07:00 15:00 23:00 Intake Total 0 ml 610 ml 120 ml 360 ml Output Total 550 ml Balance -550 ml 610 ml 120 ml 360 ml Intake Oral 0 ml 120 ml 360 ml IV Total 10 ml Other 600 ml Output Urine Total 550 ml # Voids 5 3 # Bowel Movements 0 0 Result Diagram: 10/21/17 0652 10/21/17 0652 Imaging Last Impressions Cholangiopancreatography MRI 10/20/17 0600 Signed Impressions: CONCLUSION: 1. There is no evidence for for retained common duct stones 2. Trace ascites GI Procedure 10/20/17 0000 Signed Impressions: CONCLUSION: Findings as above. Abdomen/Pelvis CT 10/19/17 1407 Signed Impressions: CONCLUSION: 1. Dilated intra and extra hepatic biliary ducts with the common bile duct alejandro suring 16 mm in diameter. An obstructing process in the distal common bile duct needs to be excluded. 2. Dilated main pancreatic duct measuring 6 mm. No discrete evidence of pancre atic mass. 3. Status post cholecystectomy. 4. No other significant abnormality noted. Abdomen X-Ray 10/19/17 1407 Signed Impressions: CONCLUSION: 1. No evidence of significant ileus, mass effect or free air. 2. Right upper quadrant calcifications which may represent nephrolithiasis. Lumbar Spine CT 10/19/17 0000 Signed Impressions: CONCLUSION: 1. Advanced degenerative disc disease at L1-2 and L2-3 as described 2. No evidence of acute disc herniation, significant foraminal encroachment or spinal stenosis. 3. No evidence of enhancing epidural or intradural lesions. 4. No acute bony abnormality. Head CT 10/19/17 0000 Signed Impressions: CONCLUSION: 1. Ventriculomegaly which may represent mild hydrocephalus. 2. No evidence of acute infarct, hemorrhage, mass or edema. Objective Remarks GENERAL: laying in bed, appears uncomfortable CARDIOVASCULAR: Regular rate and rhythm without murmurs RESPIRATORY: Breath sounds equal bilaterally. GASTROINTESTINAL: Abdomen soft, +tender to deep palpation throughout MUSCULOSKELETAL: No edema. Procedures ERCP with sphincterotomy/papillotomy October 20, 2017 A/P Problem List: (1) Abdominal pain ICD Code: R10.9 - Unspecified abdominal pain Status: Acute (2) Cholangitis ICD Code: K83.0 - Cholangitis Status: Acute Assessment and Plan 62-year-old female with Abdominal pain, possible cholangitis Abdomen/pelvis CT reviewed and shows a dilated intra-and extrahepatic biliary ducts with the common bile duct measuring 16 mm in diameter, dilated main pancreatic duct measuring 6 mm. -GI evaluated the patient and she is s/p ERCP with sphincterotomy/ papillotomy October 20, 2017 -continue Pain management. I have restarted pt's home oxycodone and cover w with IV morphine prn breakthrough -IV antibiotics Zosyn -Antiemetics as needed COPD, chronic, not in exacerbation -Continue Home meds -Nebulizers as scheduled and as needed A. fib, chronic -Continue home medications Cardizem, monitor telemetry DVT prophylaxis: SCDs I spoke w pt's son over the phone, Tank Damico, (cell) and updated him on his mother's condition. He feels his mother is more alert today and less confused. still concerned about appetite. Discharge Planning continue pain management. Monitor CMP. Pt continues to have poor appetite. monitor closely. Problem Qualifiers (1) Abdominal pain: Qualified Codes: R10.84 - Generalized abdominal pain Migdalia Mcginnis MD Oct 21, 2017 13:50
--- NOTE | 2017-10-21 15:46 | HHI.GIFU ---
Subjective Remarks Patient is resting in the bed more alert today Still having some mild generalized mid abdominal discomfort No nausea no vomiting Hemoglobin stable at 12.1 (Fara Posadas) Objective Vitals I&O Vital Signs Date Time Temp Pulse Resp B/P (MAP) Pulse Ox O2 Delivery O2 Flow Rate FiO2 10/21/17 13:44 18 10/21/17 12:00 97.8 92 19 152/74 (100) 100 10/21/17 09:10 99 Nasal Cannula 4.00 10/21/17 08:00 98.0 92 18 137/79 (98) 99 10/21/17 03:45 98.2 102 19 158/74 (102) 100 10/20/17 23:49 97.4 97 19 140/64 (89) 100 10/20/17 20:57 97 Nasal Cannula 3.00 10/20/17 19:02 98.5 95 18 146/67 (93) 97 10/20/17 16:50 98 10/20/17 16:46 97.3 91 16 129/66 (87) 100 I/O 10/20/17 10/20/17 10/20/17 10/21/17 10/21/17 10/21/17 07:00 15:00 23:00 07:00 15:00 23:00 Intake Total 0 ml 610 ml 120 ml 360 ml Output Total 550 ml Balance -550 ml 610 ml 120 ml 360 ml Intake Oral 0 ml 120 ml 360 ml IV Total 10 ml Other 600 ml Output Urine Total 550 ml # Voids 5 3 # Bowel Movements 0 0 Laboratory Laboratory Tests Test 10/21/17 06:52 White Blood Count 16.4 Red Blood Count 4.00 Hemoglobin 12.1 Hematocrit 36.8 Mean Corpuscular Volume 92.0 Mean Corpuscular Hemoglobin 30.3 Mean Corpuscular Hemoglobin Concent 32.9 Red Cell Distribution Width 13.7 Platelet Count 203 Mean Platelet Volume 9.3 Neutrophils (%) (Auto) 89.5 Lymphocytes (%) (Auto) 2.8 Monocytes (%) (Auto) 7.2 Eosinophils (%) (Auto) 0.3 Basophils (%) (Auto) 0.2 Neutrophils # (Auto) 14.7 Lymphocytes # (Auto) 0.5 Monocytes # (Auto) 1.2 Eosinophils # (Auto) 0.0 Basophils # (Auto) 0.0 CBC Comment DIFF FINAL Differential Comment Blood Urea Nitrogen 18 Creatinine 0.40 Random Glucose 99 Total Protein 6.1 Albumin 2.3 Calcium Level 8.8 Alkaline Phosphatase 262 Aspartate Amino Transf (AST/SGOT) 28 Alanine Aminotransferase (ALT/SGPT) 43 Total Bilirubin 0.4 Sodium Level 139 Potassium Level 3.5 Chloride Level 98 Carbon Dioxide Level 29.8 Anion Gap 11 Estimat Glomerular Filtration Rate 162 Date/Time Source Procedure Growth Status 10/19/17 16:24 Urine Clean Catch Urine Culture - Final 50-100,000 CFU/ML MIXED [place]... Complete Imaging Last Impressions Cholangiopancreatography MRI 10/20/17 0600 Signed Impressions: CONCLUSION: 1. There is no evidence for for retained common duct stones 2. Trace ascites GI Procedure 10/20/17 0000 Signed Impressions: CONCLUSION: Findings as above. Abdomen/Pelvis CT 10/19/17 140 Signed Impressions: CONCLUSION: 1. Dilated intra and extra hepatic biliary ducts with the common bile duct alejandro suring 16 mm in diameter. An obstructing process in the distal common bile duct needs to be excluded. 2. Dilated main pancreatic duct measuring 6 mm. No discrete evidence of pancre atic mass. 3. Status post cholecystectomy. 4. No other significant abnormality noted. Abdomen X-Ray 10/19/171406 Signed Impressions: CONCLUSION: 1. No evidence of significant ileus, mass effect or free air. 2. Right upper quadrant calcifications which may represent nephrolithiasis. Lumbar Spine CT 10/19/17 0000 Signed Impressions: CONCLUSION: 1. Advanced degenerative disc disease at L1-2 and L2-3 as described 2. No evidence of acute disc herniation, significant foraminal encroachment or spinal stenosis. 3. No evidence of enhancing epidural or intradural lesions. 4. No acute bony abnormality. Head CT 10/19/17 0000 Signed Impressions: CONCLUSION: 1. Ventriculomegaly which may represent mild hydrocephalus. 2. No evidence of acute infarct, hemorrhage, mass or edema. Physical Exam HEENT: normocephalic; atraumatic; mild paleness NECK: Neck is supple, no JVD, no lymphadenopathy. CHEST: Manage breath sounds CARDIAC: Regular rate and rhythm ABDOMEN: Soft, mild mid abdominal tenderness to light palpation no hepatosplenomegaly; bowel sounds are present in all four quadrants. EXTREMITIES: No clubbing, cyanosis, or edema. SKIN: Pale, no rash; no jaundice. MENTAL HEALTH NURSE: Drowsy but responds to simple questions (Fara Posadas) Assessment and Plan Assessment: (1) Abdominal pain ICD Codes: R10.9 - Unspecified abdominal pain Status: Acute (2) Cholangitis ICD Codes: K83.0 - Cholangitis Status: Acute Plan 62-year-old female coming to the hospital on 10/19/2017 with uncontrolled generalized and mid abdominal pain on the pain scale 10 out of 10 on with some associated nausea for 5 days. She notes the pain is sharp and uncontrolled and is guarding her abdomen. She is pale hemoglobin 12.4. She has minimal conversation currently secondary to her uncontrolled pain and most of her information is being gathered from the record. Patient is adopted so she does not know her family history. Could not elaborate on last EGD or colonoscopy. CT scan done on 10/19/2017 shows dilated intra-and extra hepatic biliary ducts with common bile duct measuring 6 mm. Obstructing process in the distal common bile duct. Dilated main pancreatic duct measuring 6 mm no evidence of pancreatic mass. Patient is status post cholecystectomy. 10/21/2017 patient is resting in the bed feels somewhat better than she did on admission. Still has some mid abdominal generalized soreness but gradual improvement. Encourage patient to eat and drink and stay hydrated. Patient hemoglobin is stable at 12.1. She currently denies any nausea or vomiting. ERCP done on 10/20/2017 findings include impacted stone at the ampulla level sphincterotomy followed by extension by regular sphincterotome. Biliary tree appeared dilated with multiple small debris that were removed by balloon. Dilated and tortuous pancreatic duct seen. MRCP followed with no evidence of retained duct stones. Trace of ascites. Plan Diet clear liquid diet Antibiotics, Zosyn Monitor daily LFTs Pain control per attending Anti-medics Protonix Patient was seen per myself and Dr. Randall,, this note was written on his behalf (Fara Posadas) Physician Comments Seen and examined, discussed with patient the ERCP findings. Will need out patient follow for management of chronic pancreatitis. Will sign off for now, please notify if needed again. (Debbie Randall MD) Problem Qualifiers (1) Abdominal pain: Qualified Codes: R10.84 - Generalized abdominal pain Fara Posadas Oct 21, 2017 15:46 Debbie Randall MD Oct 22, 2017 10:04
[2017-10-21] MEDS: MONTELUKAST SODIUM 10 MG TAB PO SCH (20:06)
[2017-10-22] VITALS (7 sets, daily range): BP systolic 114–142; BP diastolic 61–76; PULSE 75–84; RESP 18–19; TEMP 97.5–98.2; O2SAT 93–100
[2017-10-22] MEDS: ALPRAZolam 0.5 MG TAB PO PRN ×2 (00:27→07:53)
[2017-10-22] MEDS: PIPERACIL-TAZO 3.375 GM PREMIX 50 ML IV SCH ×3 (02:42→15:57)
[2017-10-22] MEDS: SODIUM CHLOR 0.9% 1000 ML INJ 1,000 ML IV SCH ×2 (04:42→07:54)
[2017-10-22 06:01] LABS: BASOPHIL % 0.2 % (0.0-2.0); EOSINOPHIL # 0.1 TH/MM3 (0-0.4); EOSINOPHIL % 0.9 % (0.0-4.0); HEMATOCRIT 37.7 % (35.0-46.0); HEMOGLOBIN 12.5 GM/DL (11.6-15.3); LYMPH % 6.2 % (9.0-44.0); LYMPHOCYTE # 0.7 TH/MM3 (1.0-4.8); MEAN CORPUSCULAR HEMOGLOBIN 30.4 PG (27.0-34.0); MEAN PLATELET VOLUME 8.4 FL (7.0-11.0); MONOCYTE # 0.9 TH/MM3 (0-0.9); NEUT % 84.7 % (16.0-70.0); PLATELET COUNT 223 TH/MM3 (150-450); RED CELL DISTRIBUTION WIDTH 14.1 % (11.6-17.2); WHITE BLOOD COUNT 10.6 TH/MM3 (4.0-11.0)
[2017-10-22 06:28] LABS: ALBUMIN 2.4 GM/DL (3.4-5.0); ALT (GPT) 34 U/L (10-53); AST (GOT) 17 U/L (15-37); BICARBONATE 36.8 MEQ/L (21.0-32.0); BLOOD UREA NITROGEN 11 MG/DL (7-18); CALCIUM 8.4 MG/DL (8.5-10.1); CHLORIDE 101 MEQ/L (98-107); CREATININE 0.61 MG/DL (0.50-1.00); GLOMERULAR FILTRATION RATE 99 ML/MIN (>89); GLUCOSE,RANDOM 94 MG/DL (74-106); SODIUM (NA) 143 MEQ/L (136-145)
[2017-10-22 06:30] LABS: ALKALINE PHOSPHATASE 230 U/L (45-117); TOTAL BILIRUBIN ADULT 0.5 MG/DL (0.2-1.0); TOTAL PROTEIN 6.3 GM/DL (6.4-8.2)
[2017-10-22] MEDS: PANTOPRAZOLE SOD 40 MG DELAYED RELEASE TAB PO SCH (07:50)
[2017-10-22] MEDS: predniSONE 10 MG TAB PO SCH (07:50)
[2017-10-22] MEDS: DILTIAZEM-CD 180 MG CAP ER PO SCH ×2 (07:50→21:00)
[2017-10-22] MEDS: FAMOTIDINE 20 MG TAB PO SCH (07:51)
[2017-10-22] MEDS: MAGNESIUM HYDROXIDE SUSP 30 ML CUP PO PRN ×2 (07:51→15:57)
[2017-10-22] MEDS: SODIUM CHLORIDE 0.9% FLUSH 10 ML FLUSH IV FLUSH SCH ×2 (07:54→21:03)
--- NOTE | 2017-10-22 09:11 | HHI.PR ---
Subjective Remarks Pt states that she is having more abdominal pain compared to yesterday but she feels more alert and thinks it is because she is on the oxycodone. She states that unfortunately the oxycodone doesn't last very long. Denies any nausea or vomiting at this time. Trying to eat. Had milk of mag earlier this morning. No BM yet. Pt is afraid to take the morphine because it makes her very drowsy but because she is having pain she would like a dose now but less than what she is supposed to get ( agreeable to 1mg IV x 1 now ). Objective Vitals Vital Signs Date Time Temp Pulse Resp B/P (MAP) Pulse Ox O2 Delivery O2 Flow Rate FiO2 10/22/17 08:00 98.2 77 18 120/70 (87) 98 10/21/17 23:25 97.9 84 18 134/63 (86) 98 10/21/17 21:08 98 Nasal Cannula 3.00 10/21/17 19:36 97.8 80 18 115/61 (79) 99 10/21/17 17:56 18 10/21/17 16:00 97.7 90 18 142/80 (100) 98 10/21/17 13:44 18 10/21/17 12:00 97.8 92 19 152/74 (100) 100 10/21/17 09:10 99 Nasal Cannula 4.00 I/O 10/21/17 10/21/17 10/21/17 10/22/17 10/22/17 10/22/17 07:00 15:00 23:00 07:00 15:00 23:00 Intake Total 360 ml 300 ml 480 ml Output Total 1300 ml Balance 360 ml -1000 ml 480 ml Intake Oral 360 ml 300 ml 480 ml Output Urine Total 1300 ml # Voids 3 6 # Bowel Movements 0 0 0 Result Diagram: 10/22/17 0529 10/22/17 0529 Imaging Last Impressions Cholangiopancreatography MRI 10/20/17 0600 Signed Impressions: CONCLUSION: 1. There is no evidence for for retained common duct stones 2. Trace ascites GI Procedure 10/20/17 0000 Signed Impressions: CONCLUSION: Findings as above. Abdomen/Pelvis CT 10/19/17 1407 Signed Impressions: CONCLUSION: 1. Dilated intra and extra hepatic biliary ducts with the common bile duct alejandro suring 16 mm in diameter. An obstructing process in the distal common bile duct needs to be excluded. 2. Dilated main pancreatic duct measuring 6 mm. No discrete evidence of pancre atic mass. 3. Status post cholecystectomy. 4. No other significant abnormality noted. Abdomen X-Ray 10/19/17 1407 Signed Impressions: CONCLUSION: 1. No evidence of significant ileus, mass effect or free air. 2. Right upper quadrant calcifications which may represent nephrolithiasis. Lumbar Spine CT 10/19/17 0000 Signed Impressions: CONCLUSION: 1. Advanced degenerative disc disease at L1-2 and L2-3 as described 2. No evidence of acute disc herniation, significant foraminal encroachment or spinal stenosis. 3. No evidence of enhancing epidural or intradural lesions. 4. No acute bony abnormality. Head CT 10/19/17 0000 Signed Impressions: CONCLUSION: 1. Ventriculomegaly which may represent mild hydrocephalus. 2. No evidence of acute infarct, hemorrhage, mass or edema. Objective Remarks GENERAL: sitting up on recliner, sipping on her soup. She is much more alert this morning but does look uncomfortable CARDIOVASCULAR: Regular rate and rhythm without murmurs RESPIRATORY: Breath sounds equal bilaterally. GASTROINTESTINAL: Abdomen soft, +tender to deep palpation throughout which seems unchanged. some voluntary guarding but no rebound. MUSCULOSKELETAL: moves extremities. Procedures ERCP with sphincterotomy/papillotomy October 20, 2017 A/P Problem List: (1) Abdominal pain ICD Code: R10.9 - Unspecified abdominal pain Status: Acute (2) Cholangitis ICD Code: K83.0 - Cholangitis Status: Acute Assessment and Plan 62-year-old female with Abdominal pain, possible cholangitis, leukocytosis Abdomen/pelvis CT reviewed and shows a dilated intra-and extrahepatic biliary ducts with the common bile duct measuring 16 mm in diameter, dilated main pancreatic duct measuring 6 mm. -GI evaluated the patient and she is s/p ERCP with sphincterotomy/ papillotomy October 20, 2017 -continue Pain management. she is on her home dose of oxycodone and cover w with IV morphine prn breakthrough but she would rather not take it. I will give her a one time dose now for immediate relief but I will add some norco prn to help her -IV antibiotics Zosyn -Antiemetics as needed -WBC now back to normal -LFTs normalized. continue to monitor daily. continue clear diet per GI recs. COPD, chronic, not in exacerbation -Continue Home meds -Nebulizers as scheduled and as needed A. fib, chronic -Continue home medications Cardizem, monitor telemetry DVT prophylaxis: SCDs I spoke w pt's son over the phone, Tank Damico, (cell) and updated him on his mother's condition. He feels his mother is more alert today and less confused. still concerned about appetite. Discharge Planning continue pain management. Monitor CMP. Pt continues to have poor appetite. monitor closely. Problem Qualifiers (1) Abdominal pain: Qualified Codes: R10.84 - Generalized abdominal pain Migdalia Mcginnis MD Oct 22, 2017 09:10
[2017-10-22] MEDS ORDERED: MORPHINE SULFATE 4 MG/ML INJ IV PRN (09:15)
[2017-10-22] MEDS ORDERED: MORPHINE SULFATE 2 MG/ML SYRINGE IV PUSH ONE (09:15)
[2017-10-22] MEDS: RESP: ALBUTEROL 2.5 MG/IPRATROPIUM 0.5 MG NEB (SCH) NEB ×4 (09:16→22:12)
[2017-10-22] MEDS ORDERED: MORPHINE SULFATE 4 MG/ML INJ IV PUSH ONE (10:00)
[2017-10-22] MEDS ORDERED: DOCUSATE SODIUM 50 MG/SENNA 8.6 MG TAB PO PRN (14:00)
[2017-10-22] MEDS: ACETAMINOPHEN/HYDROcodone 325 MG/7.5 MG TAB PO PRN (15:56)
[2017-10-22] MEDS: MONTELUKAST SODIUM 10 MG TAB PO SCH (21:00)
[2017-10-22] MEDS: ALPRAZolam 1 MG TAB PO PRN (22:33)
[2017-10-23] MEDS: PIPERACIL-TAZO 3.375 GM PREMIX 50 ML IV SCH ×3 (01:13→16:55)
[2017-10-23] MEDS: RESP: ALBUTEROL 2.5 MG/IPRATROPIUM 0.5 MG NEB (SCH) NEB ×4 (06:34→19:12)
[2017-10-23 07:42] LABS: AUTOMATED NEUTROPHIL # 5.8 TH/MM3 (1.8-7.7); BASOPHIL % 0.4 % (0.0-2.0); EOSINOPHIL # 0.2 TH/MM3 (0-0.4); EOSINOPHIL % 2.5 % (0.0-4.0); HEMATOCRIT 35.7 % (35.0-46.0); HEMOGLOBIN 11.8 GM/DL (11.6-15.3); LYMPH % 11.5 % (9.0-44.0); LYMPHOCYTE # 0.9 TH/MM3 (1.0-4.8); MEAN CELL VOLUME 91.9 FL (80.0-100.0); MEAN CORPUSCULAR HEMOGLOBIN 30.3 PG (27.0-34.0); MEAN PLATELET VOLUME 8.8 FL (7.0-11.0); MONO % 9.7 % (0.0-8.0); MONOCYTE # 0.7 TH/MM3 (0-0.9); NEUT % 75.9 % (16.0-70.0); PLATELET COUNT 256 TH/MM3 (150-450); RED BLOOD COUNT 3.88 MIL/MM3 (4.00-5.30); WHITE BLOOD COUNT 7.7 TH/MM3 (4.0-11.0)
[2017-10-23 07:53] LABS: ALBUMIN 2.4 GM/DL (3.4-5.0); AST (GOT) 14 U/L (15-37); BLOOD UREA NITROGEN 9 MG/DL (7-18); CALCIUM 8.6 MG/DL (8.5-10.1); CHLORIDE 101 MEQ/L (98-107); CREATININE 0.49 MG/DL (0.50-1.00); GLOMERULAR FILTRATION RATE 128 ML/MIN (>89); GLUCOSE,RANDOM 85 MG/DL (74-106); MAGNESIUM 2.4 MG/DL (1.5-2.5); SODIUM (NA) 143 MEQ/L (136-145)
[2017-10-23 07:54] LABS: ALT (GPT) 30 U/L (10-53)
[2017-10-23 07:57] LABS: ALKALINE PHOSPHATASE 197 U/L (45-117); TOTAL BILIRUBIN ADULT 0.2 MG/DL (0.2-1.0); TOTAL PROTEIN 5.8 GM/DL (6.4-8.2)
[2017-10-23 08:00] VITALS: BP 133/74; PULSE 71; RESP 16; TEMP 97.3; O2SAT 98
[2017-10-23] MEDS: PANTOPRAZOLE SOD 40 MG DELAYED RELEASE TAB PO SCH (09:05)
[2017-10-23] MEDS: predniSONE 10 MG TAB PO SCH (09:05)
[2017-10-23] MEDS: FAMOTIDINE 20 MG TAB PO SCH (09:05)
[2017-10-23] MEDS: SODIUM CHLORIDE 0.9% FLUSH 10 ML FLUSH IV FLUSH SCH ×2 (09:09→19:40)
[2017-10-23] MEDS: SODIUM CHLOR 0.9% 1000 ML INJ 1,000 ML IV SCH ×2 (09:10→22:05)
[2017-10-23] MEDS: ALPRAZolam 1 MG TAB PO PRN ×2 (09:47→20:06)
[2017-10-23] MEDS: ACETAMINOPHEN/HYDROcodone 325 MG/7.5 MG TAB PO PRN ×2 (09:48→18:23)
[2017-10-23 12:00] VITALS: BP 132/75; PULSE 71; RESP 16; TEMP 97.4; O2SAT 100
[2017-10-23] MEDS ORDERED: POTASSIUM CHLORIDE 20 MEQ CONTROLLED RELEASE TAB PO ONE (14:00)
--- NOTE | 2017-10-23 15:15 | HHI.PR ---
Subjective Remarks Still having abdominal pain. Pt states that her pain is improving but still there. She is eating a bit more. Not comfortable going home today and hopeful she can tomorrow. would like to try a vanilla ensure. Feels weak but doesn't want to go to rehab. Would prefer to have home health as she had a bad experience w rehab in the past. Denies any chest pains or SOB. Objective Vitals Vital Signs Date Time Temp Pulse Resp B/P (MAP) Pulse Ox O2 Delivery O2 Flow Rate FiO2 10/23/17 12:00 97.4 71 16 132/75 (94) 100 10/23/17 08:00 97.3 71 16 133/74 (93) 98 10/22/17 23:56 97.8 79 18 133/76 (95) 97 10/22/17 22:14 99 Nasal Cannula 3.00 10/22/17 20:08 97.6 80 19 142/66 (91) 100 10/22/17 16:00 97.7 84 18 114/61 (78) 99 I/O 10/22/17 10/22/17 10/22/17 10/23/17 10/23/17 10/23/17 07:00 15:00 23:00 07:00 15:00 23:00 Intake Total 480 ml 2660 ml 480 ml Balance 480 ml 2660 ml 480 ml Intake Oral 480 ml 480 ml 480 ml IV Total 2180 ml # Voids 6 4 2 5 1 # Bowel Movements 0 1 1 Result Diagram: 10/23/17 0617 10/23/17 0617 Imaging Last Impressions Cholangiopancreatography MRI 10/20/17 0600 Signed Impressions: CONCLUSION: 1. There is no evidence for for retained common duct stones 2. Trace ascites GI Procedure 10/20/17 0000 Signed Impressions: CONCLUSION: Findings as above. Abdomen/Pelvis CT 10/19/17 140 Signed Impressions: CONCLUSION: 1. Dilated intra and extra hepatic biliary ducts with the common bile duct alejandro suring 16 mm in diameter. An obstructing process in the distal common bile duct needs to be excluded. 2. Dilated main pancreatic duct measuring 6 mm. No discrete evidence of pancre atic mass. 3. Status post cholecystectomy. 4. No other significant abnormality noted. Abdomen X-Ray 10/19/171406 Signed Impressions: CONCLUSION: 1. No evidence of significant ileus, mass effect or free air. 2. Right upper quadrant calcifications which may represent nephrolithiasis. Lumbar Spine CT 10/19/17 0000 Signed Impressions: CONCLUSION: 1. Advanced degenerative disc disease at L1-2 and L2-3 as described 2. No evidence of acute disc herniation, significant foraminal encroachment or spinal stenosis. 3. No evidence of enhancing epidural or intradural lesions. 4. No acute bony abnormality. Head CT 10/19/17 0000 Signed Impressions: CONCLUSION: 1. Ventriculomegaly which may represent mild hydrocephalus. 2. No evidence of acute infarct, hemorrhage, mass or edema. Objective Remarks GENERAL: sitting up on bed. She is much more alert this morning but does look tired CARDIOVASCULAR: Regular rate and rhythm without murmurs RESPIRATORY: Breath sounds equal bilaterally. GASTROINTESTINAL: Abdomen soft, +tender to deep palpation throughout which seems unchanged. some voluntary guarding but no rebound. MUSCULOSKELETAL: moves extremities. Procedures ERCP with sphincterotomy/papillotomy October 20, 2017 A/P Problem List: (1) Abdominal pain ICD Code: R10.9 - Unspecified abdominal pain Status: Acute (2) Cholangitis ICD Code: K83.0 - Cholangitis Status: Acute Assessment and Plan 62-year-old female with Abdominal pain, possible cholangitis, leukocytosis, chronic pancreatitis Abdomen/pelvis CT reviewed and shows a dilated intra-and extrahepatic biliary ducts with the common bile duct measuring 16 mm in diameter, dilated main pancreatic duct measuring 6 mm. -GI evaluated the patient and she is s/p ERCP with sphincterotomy/ papillotomy October 20, 2017 -continue Pain management. she is on her home dose of oxycodone. Pt doesn't want any morphine IV as it makes her extremely drowsy. currently has some norco prn to help her -IV antibiotics Zosyn, continue for now. leukocytosis resolved. -Antiemetics as needed -LFTs normalized. continue to monitor daily. diet has been advanced to heart healthy, I have added ensure TID COPD, chronic, not in exacerbation -Continue Home meds -Nebulizers as scheduled and as needed A. fib, chronic -Continue home medications Cardizem, monitor telemetry DVT prophylaxis: SCDs I spoke w pt's son over the phone over the week-end, Tank Mookie, [phone] (cell) and updated him on his mother's condition. He felt his mother was more alert and less confused but was still concerned about her appetite. Discharge Planning continue pain management. Monitor CMP. Pt continues to have poor appetite but seems to be improving, she would like try ensures TID. monitor closely. GI has cleared pt for d/c, she will need outpatient f/u w them for her chronic pancreatitis. Pt will need to f/u w PCP to adjust her pain meds as she is on them chronically. anticipate d/c in 1-2 days Problem Qualifiers (1) Abdominal pain: Qualified Codes: R10.84 - Generalized abdominal pain Migdalia Mcginnis MD Oct 23, 2017 15:15
[2017-10-23 15:18] VITALS: O2SAT 97
[2017-10-23] MEDS ORDERED: ZOLPIDEM TARTRATE 10 MG TAB PO PRN (15:30)
[2017-10-23 16:00] VITALS: BP 117/67; PULSE 77; RESP 16; TEMP 97.8; O2SAT 96
--- NOTE | 2017-10-23 16:09 | HHI.FF ---
Face to Face Verification Diagnosis: (1) Chronic pancreatitis (2) Abdominal pain (3) Debilitated patient Physical Therapy Order: Evaluate and Treat Home Health Nursing Order: Nursing assessment with vital signs I have seen patient Shanda Decker on 10/23/17. My clinical findings support the need for the requested home health care services because: PT evaluated the pt and requires home health PT Deconditioned w/ increased weakness Limited ability to care for self High risk of falls I certify that my clinical findings support that this patient is homebound because: Pt evaluated the patient and recommends home health PT Unsteady gait/balance Migdalia Mcginnis MD Oct 23, 2017 16:09
[2017-10-23] MEDS ORDERED: WALKER WHEELS/F1 MIS (16:10)
[2017-10-23] MEDS: MONTELUKAST SODIUM 10 MG TAB PO SCH (19:40)
[2017-10-23] MEDS: DILTIAZEM-CD 180 MG CAP ER PO SCH (19:40)
[2017-10-23 20:00] VITALS: BP 153/77; PULSE 80; RESP 18; TEMP 98.2; O2SAT 99
[2017-10-24] VITALS: BP 153/72; PULSE 80; RESP 17; TEMP 98.5; O2SAT 98
[2017-10-24] MEDS: PIPERACIL-TAZO 3.375 GM PREMIX 50 ML IV SCH ×2 (01:27→11:18)
[2017-10-24] MEDS: ACETAMINOPHEN/HYDROcodone 325 MG/7.5 MG TAB PO PRN ×2 (01:29→11:24)
[2017-10-24 07:00] LABS: AUTOMATED NEUTROPHIL # 5.1 TH/MM3 (1.8-7.7); BASOPHIL % 0.7 % (0.0-2.0); EOSINOPHIL # 0.2 TH/MM3 (0-0.4); EOSINOPHIL % 2.8 % (0.0-4.0); HEMATOCRIT 33.9 % (35.0-46.0); LYMPH % 15.9 % (9.0-44.0); LYMPHOCYTE # 1.2 TH/MM3 (1.0-4.8); MEAN CELL VOLUME 93.3 FL (80.0-100.0); MEAN CORPUSCULAR HEMOGLOBIN 30.2 PG (27.0-34.0); MEAN CORPUSCULAR HGB CONC 32.3 % (32.0-36.0); MEAN PLATELET VOLUME 8.7 FL (7.0-11.0); MONOCYTE # 0.7 TH/MM3 (0-0.9); NEUT % 70.6 % (16.0-70.0); PLATELET COUNT 315 TH/MM3 (150-450); RED BLOOD COUNT 3.64 MIL/MM3 (4.00-5.30); RED CELL DISTRIBUTION WIDTH 14.2 % (11.6-17.2); WHITE BLOOD COUNT 7.3 TH/MM3 (4.0-11.0)
[2017-10-24 07:24] LABS: ALBUMIN 2.4 GM/DL (3.4-5.0); AST (GOT) 14 U/L (15-37); BICARBONATE 33.9 MEQ/L (21.0-32.0); BLOOD UREA NITROGEN 9 MG/DL (7-18); CALCIUM 8.5 MG/DL (8.5-10.1); CHLORIDE 103 MEQ/L (98-107); CREATININE 0.55 MG/DL (0.50-1.00); GLOMERULAR FILTRATION RATE 112 ML/MIN (>89); GLUCOSE,RANDOM 78 MG/DL (74-106); MAGNESIUM 2.3 MG/DL (1.5-2.5); SODIUM (NA) 144 MEQ/L (136-145)
[2017-10-24 07:25] LABS: ALT (GPT) 25 U/L (10-53)
[2017-10-24 07:27] LABS: ALKALINE PHOSPHATASE 179 U/L (45-117); TOTAL BILIRUBIN ADULT 0.2 MG/DL (0.2-1.0); TOTAL PROTEIN 5.5 GM/DL (6.4-8.2)
[2017-10-24] MEDS: RESP: ALBUTEROL 2.5 MG/IPRATROPIUM 0.5 MG NEB (SCH) NEB (07:50)
[2017-10-24 07:53] VITALS: O2SAT 98
[2017-10-24 08:00] VITALS: BP 140/80; PULSE 83; RESP 16; TEMP 97.8; O2SAT 98
[2017-10-24] MEDS: FAMOTIDINE 20 MG TAB PO SCH (08:26)
[2017-10-24] MEDS: PANTOPRAZOLE SOD 40 MG DELAYED RELEASE TAB PO SCH (08:26)
[2017-10-24] MEDS: predniSONE 10 MG TAB PO SCH (08:26)
[2017-10-24 12:00] VITALS: BP 115/57; PULSE 78; RESP 16; TEMP 97.1; O2SAT 99
--- NOTE | 2017-10-24 15:02 | HHI.DS ---
Discharge Summary Admission Date Oct 19, 2017 at 18:07 Discharge Date: Oct 24, 2017 Admitting Diagnosis Abd pain; Possible cholangitis (1) Abdominal pain ICD Code: R10.9 - Unspecified abdominal pain Status: Acute (2) Cholangitis ICD Code: K83.0 - Cholangitis Status: Acute Procedures 10/20/17 - ERCP with sphincterotomy/papillotomy by Dr. Randall; showed Impacted stone at the ampulla level, Needle knife sphincterotomy follow by extension by regular sphinctertome; The biliary tree appeared dilated with multiple small debris that were removed by balloon; Dilated and tortous pancreatic duct Brief History - From Admission Obtained from Admission H&P: 62-year-old female with a history of COPD on home oxygen, A. fib, anxiety, hepatitis C presented to the ED for abdominal pain. Patient states she has been having constant, 10/10,generalized abdominal pain that radiates to her back with associated nausea for the last 5 days. She also reports difficulty with urination as well. She denies any chest pain, shortness of breath, fever or chills. CBC/BMP: 10/24/17 0638 10/24/17 0638 Significant Findings Laboratory Tests Test 10/22/17 05:29 10/23/17 06:17 10/24/17 06:38 Neutrophils (%) (Auto) 84.7 % (16.0-70.0) 75.9 % (16.0-70.0) 70.6 % (16.0-70.0) Lymphocytes (%) (Auto) 6.2 % (9.0-44.0) Neutrophils # (Auto) 9.0 TH/MM3 (1.8-7.7) Lymphocytes # (Auto) 0.7 TH/MM3 (1.0-4.8) 0.9 TH/MM3 (1.0-4.8) Total Protein 6.3 GM/DL (6.4-8.2) 5.8 GM/DL (6.4-8.2) 5.5 GM/DL (6.4-8.2) Albumin 2.4 GM/DL (3.4-5.0) 2.4 GM/DL (3.4-5.0) 2.4 GM/DL (3.4-5.0) Calcium Level 8.4 MG/DL (8.5-10.1) Alkaline Phosphatase 230 U/L (45-117) 197 U/L (45-117) 179 U/L (45-117) Potassium Level 3.0 MEQ/L (3.5-5.1) 3.2 MEQ/L (3.5-5.1) Carbon Dioxide Level 36.8 MEQ/L (21.0-32.0) 37.0 MEQ/L (21.0-32.0) 33.9 MEQ/L (21.0-32.0) Red Blood Count 3.88 MIL/MM3 (4.00-5.30) 3.64 MIL/MM3 (4.00-5.30) Monocytes (%) (Auto) 9.7 % (0.0-8.0) 10.0 % (0.0-8.0) Creatinine 0.49 MG/DL (0.50-1.00) Aspartate Amino Transf (AST/SGOT) 14 U/L (15-37) 14 U/L (15-37) Hemoglobin 11.0 GM/DL (11.6-15.3) Hematocrit 33.9 % (35.0-46.0) Imaging Last Impressions Cholangiopancreatography MRI 10/20/17 0600 Signed Impressions: CONCLUSION: 1. There is no evidence for for retained common duct stones 2. Trace ascites GI Procedure 10/20/17 0000 Signed Impressions: CONCLUSION: Findings as above. Abdomen/Pelvis CT 10/19/17 140 Signed Impressions: CONCLUSION: 1. Dilated intra and extra hepatic biliary ducts with the common bile duct alejandro suring 16 mm in diameter. An obstructing process in the distal common bile duct needs to be excluded. 2. Dilated main pancreatic duct measuring 6 mm. No discrete evidence of pancre atic mass. 3. Status post cholecystectomy. 4. No other significant abnormality noted. Abdomen X-Ray 10/19/171406 Signed Impressions: CONCLUSION: 1. No evidence of significant ileus, mass effect or free air. 2. Right upper quadrant calcifications which may represent nephrolithiasis. Lumbar Spine CT 10/19/17 0000 Signed Impressions: CONCLUSION: 1. Advanced degenerative disc disease at L1-2 and L2-3 as described 2. No evidence of acute disc herniation, significant foraminal encroachment or spinal stenosis. 3. No evidence of enhancing epidural or intradural lesions. 4. No acute bony abnormality. Head CT 10/19/17 0000 Signed Impressions: CONCLUSION: 1. Ventriculomegaly which may represent mild hydrocephalus. 2. No evidence of acute infarct, hemorrhage, mass or edema. PE at Discharge GENERAL: Well-nourished, well-developed middle aged female patient in NAD. SKIN: Warm and dry. No rash. HEENT: Normocephalic. Atraumatic. Pupils equal and round. Mucous membranes pink and moist. CARDIOVASCULAR: Regular rate and rhythm. No murmur appreciated. RESPIRATORY: No accessory muscle use. Clear to auscultation. Breath sounds equal bilaterally. GASTROINTESTINAL: Abdomen soft, nondistended, minimal diffuse TTP, however nontender when distracted with conversation. Normoactive bowel sounds x4. MUSCULOSKELETAL: No obvious deformities. Extremities without clubbing, cyanosis , or edema. NEUROLOGICAL: Awake and alert. No obvious cranial nerve deficits. Motor grossly within normal limits. Moving all extremities spontaneously. Normal speech. Pt update on day of discharge The patient reports feeling better today. She has been tolerating oral intake with no further nausea/vomiting. She states she occasionally has some diffuse abdominal discomfort but this has also improved. Denies any fevers/chills. Having normal BMs. Denies any other medical complaints at this time. She wants to go home. Hospital Course 62-year-old female with a history of COPD on home oxygen, A. fib, anxiety, hepatitis C presented to the ED for abdominal pain. Abdominal pain/Chronic Pancreatitis: initially suspected possible cholangitis with leukocytosis, elevated LFTs. Patient also with history of chronic pancreatitis with non-elevated lipase. Abdomen/pelvis CT reviewed and shows a dilated intra-and extrahepatic biliary ducts with the common bile duct measuring 16 mm in diameter, dilated main pancreatic duct measuring 6 mm. She was started on IV Zosyn, however leukocytosis resolved and antibiotics discontinued. GI evaluated the patient and she is s/p ERCP with sphincterotomy/ papillotomy 10/20/17 showed impacted stone at the ampulla level s/p sphincterotomy; the biliary tree appeared dilated with multiple small debris that were removed by balloon; Dilated and tortuous pancreatic duct. Continued pain management on her home dose of oxycodone. Pt doesn't want any morphine IV as it makes her extremely drowsy. Also given [place] and antiemetics as needed. LFTs normalized. Patient tolerating regular diet. GI signed off. Recommended outpatient follow up for management of chronic pancreatitis. The patient states she sees a professor of biblical studies in [place] and plans to follow up with him. She states she is also due for her colonoscopy. COPD, chronic, not in exacerbation: Continue Home meds . Nebulizers as scheduled and as needed. O2 stable on patient's home oxygen. A. fib, chronic. Continue home medications Cardizem, monitor telemetry. In sinus rhythm. Outpatient f/up. Pt Condition on Discharge: Stable Discharge Disposition: Disch w/ Home Health Serv Discharge Time: > 30 minutes Discharge Instructions DIET: Follow Instructions for: Heart Healthy Diet Additional Diet Instructions: Add ensure to each meal. Activities you can perform: Regular-No Restrictions Follow up Referrals: Gastroenterology - 1 Week PCP Follow-up - 2-3 Days with Tika Cuellar MD New Medications: Walker with Front Wheels (Walker with Front Wheels) 1 Mis Mis EA .XX DIRECTED, #1 0 Refills Continued Medications: Albuterol 18 GM Inh (Ventolin Hfa 18 GM Inh) 90 Mcg/Act Aer 2 PUFF INH Q4H PRN for SHORTNESS OF BREATH, #1 INHALER 0 Refills Albuterol Neb (Albuterol Neb) 2.5 Mg/0.5 Ml Neb 2.5 MG NEB Q4HR NEB PRN for SHORTNESS OF BREATH, EA Note: The Albuterol Sulfate Inhalation Solution is concentrated and must be diluted. Read complete instructions carefully before using. Alprazolam (Alprazolam) 1 Mg Tab 1 MG PO Q8H PRN for ANXIETY, TAB 0 Refills Diltiazem CD 24 HR (Cardizem CD 24 HR) 180 Mg Caper 180 MG PO DAILY, #30 CAP 0 Refills Ipratropium Neb (Ipratropium Neb) 0.5 Mg/2.5 Ml Amp 0.5 MG NEB Q4HR NEB for Breathing Treatment, NEBULE 0 Refills Montelukast (Montelukast) 10 Mg Tab 10 MG PO HS, #30 TAB 0 Refills Omeprazole (Omeprazole) 40 Mg Cap 40 MG DAILY, #30 CAP 0 Refills Oxycodone (Oxycodone) 30 Mg Tab 30 MG PO Q8H PRN for PAIN SCALE 1 TO 10, TAB 0 Refills Prednisone (Prednisone) 10 Mg Tab 10 MG PO DAILY, TAB 0 Refills Ranitidine (Ranitidine) 150 Mg Tab 150 MG PO DAILY for Heartburn Management, #30 TAB 0 Refills Discontinued Medications: Alprazolam (Alprazolam) 0.5 Mg Tab 0.5 MG PO Q8H PRN for ANXIETY, TAB 0 Refills Ellen Ventura PA-C Oct 24, 2017 15:02
[2017-10-24] MEDS: ALPRAZolam 0.5 MG TAB PO PRN (15:07)
[2017-10-24 16:00] VITALS: BP 156/68; PULSE 81; RESP 16; TEMP 97.8; O2SAT 98
== END 2017-10-24 17:20 | disposition home health service (06) | DRG 445 ==
LOC: NEPE 12:44 → NEDA 18:07 → N06B 19:08
PROVIDERS: ADMIT Family Medicine; ATTEND Family Medicine
PROC: 0FCC8ZZ Extirpation of Matter from Ampulla of Vater, Via Natural or Artificial Opening Endoscopic (ICD-10-PCS; principal; 2017-10-20 11:06)
DX: K83.0 Cholangitis (principal); N39.0 Urinary tract infection, site not specified; R64 Cachexia; K86.1 Other chronic pancreatitis; J44.9 Chronic obstructive pulmonary disease, unspecified; K21.9 Gastro-esophageal reflux disease without esophagitis; F41.9 Anxiety disorder, unspecified; B19.20 Unspecified viral hepatitis C without hepatic coma; R14.0 Abdominal distension (gaseous); I48.2 Chronic atrial fibrillation; Z99.81 Dependence on supplemental oxygen; Z72.0 Tobacco use; Z90.49 Acquired absence of other specified parts of digestive tract
CPT/HCPCS: 70450; 72132; 74018; 74177; 74181; 74330; 76377; 80053; 81001; 83605; 83690; 83735; 85025; 85610; 85730; 87086; 93005; 94640; 94664; 96374; C1769; J2270; J2543; J7030; J7512; J7611; Q9967